=== PATIENT | female | born 1935 | race Caucasian/White ===

== ENCOUNTER 2024-03-28 09:25 | Outpatient (CLI) | payer MEDICARE, SELFPAY ==
--- NOTE | 2024-03-28 11:30 | NEURO_ITS ---
Impression: # Complains of numbness of feet. History of lower back surgery twice. # Sensory neuropathy. # Needle/EMG exam abnormal with decreased motor unit potentials but no acute neurogenic changes. # Clinical correlation recommended. Nerve Conduction Studies Anti Sensory Summary Table Stim Site NR Peak (ms) P-T Amp (?V) Site1 Site2 Delta-P (ms) Dist (cm) Alec (m/s) Left Sup Fibular Anti Sensory (Ant Lat Mall) 14 cm 4.6 11.4 14 cm Ant Lat Mall 4.6 16.0 35 Right Sup Fibular Anti Sensory (Ant Lat Mall) NO RESPONSE 14 cm NR 14 cm Ant Lat Mall 16.0 Left Sural Anti Sensory (Lat Mall) NO RESPONSE Calf NR Calf Lat Mall 16.0 Right Sural Anti Sensory (Lat Mall) NO RESPONSE Calf NR Calf Lat Mall 16.0 Motor Summary Table Stim Site NR Onset (ms) O-P Amp (mV) Site1 Site2 Delta-0 (ms) Dist (cm) Alec (m/s) Left Peroneal Motor (Vastus Med) Ankle 4.1 1.8 Popit Ankle 8.4 38.0 45 Popit 12.5 1.2 Right Peroneal Motor (Vastus Med) Ankle 4.0 1.2 Popit Ankle 8.7 40.0 46 Popit 12.7 1.0 Left Tibial Motor (Abd Gaming Brev) Ankle 4.5 0.5 Knee Ankle 9.0 39.0 43 Knee 13.5 1.0 Right Tibial Motor (Abd Gaming Brev) Ankle 4.4 0.6 Knee Ankle 9.4 40.0 43 Knee 13.8 1.4 F Wave Studies NR F-Lat (ms) L-R F-Lat (ms) Left Peroneal (Mrkrs) (EDB) 52.07 1.45 Right Peroneal (Mrkrs) (EDB) 50.63 1.45 Left Tibial (Mrkrs) (Abd Hallucis) 51.23 1.05 Right Tibial (Mrkrs) (Abd Hallucis) 50.18 1.05 EMG Side Muscle Nerve Root Ins Act Fibs Amp Dur Recrt Comment Right AntTibialis Dp Br Fibular L4-5 Nml Nml Nml Nml +1 Right Gastroc Tibial S1-2 Nml Nml Nml Nml +1 Right Fibularis Long Sup Br Fibular L5-S1 Nml Nml Nml Nml +1 Right Flex Dig Long Tibial L5-S2 Nml Nml Nml Nml +1 Right Ext Dig Brev Dp Br Fibular L5, S1 Nml Nml Nml Nml +1 Right QuadratusFem QuadFemoris L4-5, S1 Nml Nml Nml Nml +1 Left AntTibialis Dp Br Fibular L4-5 Nml Nml Nml Nml +1 Left Gastroc Tibial S1-2 Nml Nml Nml Nml +1 Left Fibularis Long Sup Br Fibular L5-S1 Nml Nml Nml Nml +1 Left Flex Dig Long Tibial L5-S2 Nml Nml Nml Nml +1 Left Ext Dig Brev Dp Br Fibular L5, S1 Nml Nml Nml Nml +1 Left QuadratusFem QuadFemoris L4-5, S1 Nml Nml Nml Nml +1 MTDD
== END 2024-03-28 09:26 | disposition home or self-care (01) ==
LOC: ANHNEURO 09:33
PROVIDERS: PCP Internal Medicine; Visit Provider Internal Medicine
DX: G62.9 Polyneuropathy, unspecified (principal); R94.131 Abnormal electromyogram [EMG]
CPT/HCPCS: 95886; 95910

== ENCOUNTER 2024-04-18 17:34 | Emergency (ER) | payer MEDICARE, SELFPAY ==
--- NOTE | ~2024-04-18 | CT_ITS ---
EXAMINATION: CT brain wo con DATE: 04/18/2024 18:48 INDICATION: fall . TECHNIQUE: Computed tomography (CT) of the head was performed without intravenous contrast. The mA wa s adjusted according to patient size. Iterative reconstruction technique was employed. The dose-lengt h product was 605.33 mGy-cm. COMPARISON: None. FINDINGS: No acute intracranial hemorrhage or extra-axial fluid collection. No hydrocephalus, mass, or herniation. No acute ischemic infarct. Unremarkable dural venous sinus attenuation. No acute osseous abnormality. Left frontal laceration/contusion The aerated spaces are clear. Mild atrophy and chronic white matter change. Atherosclerotic intracranial calcification. Bilateral l ens replacements. IMPRESSION: No acute intracranial process. Reviewed, dictated and finalized at location K.
--- NOTE | ~2024-04-18 | CT_ITS ---
EXAMINATION: CT facial & cervical spine wo DATE: 04/18/2024 18:49 INDICATION: fall TECHNIQUE: Computed tomography (CT) of the maxillofacial region and cervical spine was performed with out intravenous contrast. Automated exposure control and iterative reconstruction technique were empl oyed. The dose-length product was 205.55 mGy-cm. COMPARISON: None FINDINGS: CERVICAL: Vertebral Body Alignment: 2 mm anterolisthesis at C2-3 and C3-4, presumably on a degenerative basis. Focal kyphosis centered at C3-4 Craniocervical and atlantoaxial alignment: Moderate degenerative change. Alignment intact. Osseous structures/fracture: No evidence of a lytic or blastic process in the visualized spine. No e vidence of acute fracture. Cervical soft tissues: The paraspinal soft tissues planes are maintained. Degenerative changes: Multilevel moderate degenerative disc disease including large bridging anterior osteophytes. Multilevel moderate facet arthropathy. No severe central canal or neural foraminal narr owing. FACE: Soft Tissues: Left frontal laceration/contusion. Facial bones: No acute fracture. No lytic or blastic process. Eyes: The globes are intact. The soft tissue planes of the orbits are maintained. Bilateral lens re placements. Paranasal Sinuses: The visualized aerated spaces are clear. Foreign Bodies: No radiopaque foreign bodies. Other Findings: None. IMPRESSION: No acute fracture or traumatic malalignment in the cervical spine. No acute facial bone fracture. Reviewed, dictated and finalized at location K. IMPRESSION: No acute fracture or traumatic malalignment in the cervical spine. No acute fac ial bone fracture.
--- NOTE | ~2024-04-18 | XR_ITS ---
EXAM: XR knee LT min 4V DATE: 04/18/2024 18:36 HISTORY: fall HITTING HEAD AND LEFT KNEE . COMPARISON: None available. FINDINGS: Osteopenia. No fracture or dislocation. No lytic or blastic lesion. Tricompartmental left knee osteoarthritis, moderate in the medial compartment. No erosion or periosteal change. Soft tissue s within normal limits. IMPRESSION: No acute osseous finding in the left knee. Reviewed, dictated and finalized at location K.
[2024-04-18 17:38] VITALS: BP 150/88; PULSE 98; RESP 16; TEMP 36.6; O2SAT 97
--- NOTE | 2024-04-18 17:43 | ED.FALL ---
HPI - Fall General Chief Complaint: Fall <Felicia Beasley PA-C - Last Filed: 04/18/24 17:44> Stated Complaint: fall <Felicia Beasley PA-C - Last Filed: 04/18/24 17:44> Time Seen by Provider: 04/18/24 22:40 <Felicia Beasley PA-C - Last Filed: 04/18/24 17:44> Focused HPI: 88-year-old female presents with her daughter at bedside for a ground level fall that occurred prior to arrival. Patient states she was walking her neighbors arena cake which he tripped on a boat hitch. She fell and hit her head. She did not lose consciousness. She is not anticoagulated. She is reporting with an abrasion and bruise to her left eyebrow, abrasions to her nose, abrasions to her left knee with associated pain. Last Tdap unknown. Denies neck pain, back pain or other injuries acquired. GENERAL: Well-appearing, well-nourished, and in no acute distress. HEAD: Ecchymosis and abrasion to the left eyebrow, abrasions to the bridge of the nose. No epistaxis BACK: No midline cervical, thoracic or lumbar spinous tenderness. No step-offs or deformities CHEST: Clear to auscultation. ?No respiratory distress. EXT: Superficial abrasions to the anterior aspect of the left knee with associated tenderness to palpation. Full active and passive range of motion. HEART: Regular rate and rhythm.? NEURO: ?Alert and oriented x3. Patient screened in triage and initial orders placed.? ?Additional care and disposition to be based upon?diagnostic testing and treatment. <Felicia Beasley PA-C - Last Filed: 04/18/24 17:44> History of Present Illness HPI Narrative: This is an 88-year-old female with history of diabetic neuropathy who presents to the emergency department chief complaint of a ground level fall. Patient states she was walking to her neighbors when she tripped on a rock on the ground. She fell face 1st and landed hitting her head on the left side and bilateral knees. She has not lose consciousness and she was able to get up unassisted. She is able ambulate but wants to get evaluated she is having significant bruising in her head and knees. Pain is well controlled. Denies any nauseous, vomiting, dizziness, vision changes, chest pain, shortness a breath, back pain. Fall was purely mechanical nature according to the patient she has not had any prodromal symptoms. She was otherwise in her normal state of health. She does not have any history of seizure disorder any kind of blood thinner use. <Deep Erwin MD - Last Filed: 04/18/24 23:08> Related Data Home Medications: Home Medications Medication Instructions Recorded Confirmed alendronate 70 mg tablet mg PO 04/18/24 amitriptyline 50 mg tablet mg 04/18/24 atorvastatin 20 mg tablet mg 04/18/24 lisinopril 20 mg tablet mg 04/18/24 omeprazole 20 mg capsule,delayed mg 04/18/24 release propranolol 80 mg capsule,24 mg PO 04/18/24 hr,extended release triamcinolone acetonide 0.1 % applic topical 04/18/24 topical cream <Felicia Beasley PA-C - Last Filed: 04/18/24 17:44> Allergies/Adverse Reactions: Allergies Allergy/AdvReac Type Severity Reaction Status Date / Time codeine Allergy Unknown Hallucinati Unverified 04/18/24 23:01 ng morphine Allergy Unknown Hallucinati Unverified 04/18/24 23:01 ng <Felicia Beasley PA-C - Last Filed: 04/18/24 17:44> Review of Systems Review of Systems: As reviewed above in HPI <Deep Erwin MD - Last Filed: 04/18/24 23:08> Exam Narrative: GENERAL: [Well-appearing, well-nourished, and in no acute distress.] HEAD: Normocephalic, left-sided periorbital hematoma, soft, nontender to palpation. No zygomatic tenderness, no facial bone tenderness. No cervical spine pain or malalignment EYES: [PERRLA and EOMI.] ENT: Nares clear, no rhinorrhea or epistaxis. Mucous membranes moist. Nasal bridge with some bruising but no deformity. No basal bridge tenderness NECK: Supple. ELOISA
[2024-04-18] MEDS: TETANUS,DIPHTHERIA,AC PERTUSSIS ADULT (0.5 ML) BOOSTRIX IM (22:35)
[2024-04-18 22:43] VITALS: BP 149/77; PULSE 68; RESP 16; TEMP 36.4; O2SAT 96
[2024-04-18] MEDS: ACETAMINOPHEN 500 MG TABLET 1000 MG PO (23:05)
[2024-04-19 00:41] VITALS: BP 117/76; PULSE 86; RESP 16; TEMP 36.6; O2SAT 98
== END 2024-04-19 00:45 | disposition home or self-care (01) ==
PROVIDERS: Emergency Provider Student in an Organized Health Care Education/Training Program; PCP Internal Medicine
DX: S06.0X0A Concussion without loss of consciousness, initial encounter (principal); S00.12XA Contusion of left eyelid and periocular area, initial encounter; S80.01XA Contusion of right knee, initial encounter; S80.212A Abrasion, left knee, initial encounter; Z23 Encounter for immunization; E11.40 Type 2 diabetes mellitus with diabetic neuropathy, unspecified; Z79.899 Other long term (current) drug therapy; W18.09XA Striking against other object with subsequent fall, initial encounter
CPT/HCPCS: 70450; 70486; 72125; 73564; 90471; 90715; 99284; A9270

== ENCOUNTER 2024-12-09 11:34 | Emergency (ER) | payer OTHER, MEDICARE, SELFPAY ==
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
--- NOTE | 2024-12-09 11:37 | ECG_ITS ---
Test Date: 2024-12-09 11:42:46 Measurements Intervals [place] Rate: 67 P: 60 NC: 215 QRS: -52 QRSD: 126 T: 79 QT: 399 QTc: 423 Interpretive Statements SINUS RHYTHM WITH FIRST DEGREE AV BLOCK POSSIBLE LEFT ATRIAL ENLARGEMENT [-0.1mV P WAVE IN V1/V2] MARKED LEFT AXIS DEVIATION [QRS AXIS < -30] RIGHT BUNDLE BRANCH BLOCK [120+ ms QRS DURATION, UPRIGHT V1, 40+ ms S IN I/aVL/V4/V5/V6] POSSIBLE SEPTAL MYOCARDIAL INFARCTION , OF INDETERMINATE AGE [30 ms Q WAVE IN V1/V2] No previous ECG available for comparison Electronically Signed On 12-09-2024 11:44:55 CDT by Panfilo Benedict M.D.
[2024-12-09 12:00] VITALS: BP 149/96; PULSE 69; RESP 19; TEMP 36.2; O2SAT 96
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
--- NOTE | 2024-12-09 13:10 | PC.NURSE ---
Pt. to CT.
[2024-12-09 14:29] VITALS: BP 123/70; PULSE 77; RESP 15; O2SAT 96
--- OUTSIDE RECORDS SUMMARY | 2024-12-09 16:31 | XMS_ITS | Continuity of Care Document ---
Author Organization [facility] Address [address] [place] [address] Phone Care Team Providers Care Manager Filter Name Role Phone Veronica Palacios Unavailable Unavailable Procedures Procedure Date Office/outpatient Visit, Est Eye Exam & Treatment Refraction Eye Exam & Treatment Advance Directives Directive Yes / No Effective Date File Name No Information Encounters Encounter Description Practice Location Reason(s) For Visit Diagnoses Date Provider Providers Copied on Encounter Office/outpat ient Visit, Est [facility], [address] [place] [address] [address], [place], [place], [id number], [place] tel:[phone] SEC [facility] No Information 2-[address] , [address], [place], [place], [facility], [place]. tel:[phone] [facility], [address] [place] [address] [address], [place], [place], [id number], [place] tel:[phone] [facility] No Information 0-200 9 Suzanne Rasheed [address] , [address], [place], [address], [place]. tel:[phone] [facility], [address] [place] [address] [address], [place], [place], [id number], [place] tel:[phone] [facility] No Information 7-200 8 Suzanne Rasheed [address] , [address], [place], [address], [place]. tel:[phone] Family History Family Member Type Diagnosis Age At Onset No Information Payers Payer name Insurance type Covered green party ID Authoriza tion(s) Medicare RR MB [id number] Social History Type Description Quantity Date Captured Comments Sex Female Smoking Status No Information Chief Complaint And Reason For Visit No Information Reason For Referral Reason For Referral No Information History Of Present Illness Encounter Date Complaint History Of Prese nt Illness No Information Functional Status Date Functional Assessmen t No Information Instructions Date Instruction Additional Infor mation No Information Assessments Type Assessment Date No Information Patient Care Teams Name Effective Dates (start - stop) Status Members No Information
--- OUTSIDE RECORDS SUMMARY | 2024-12-09 16:31 | XMS_ITS | CONTINUITY OF CARE DOCUMENT ---
Author Name krysta chaparro Address Unknown Organization [facility] Address [address] [place] [address] Phone [phone] Care Team Providers Care Caser Name Role Phone Christopher Garcia MD Unavailable [phone] SCOTT BRICE MD Unavailable SCOTT BRICE MD Unavailable [phone] PROBLEMS Condition Status Date Provider Notes HYPERCHOLESTEROLEMIA active David Gilman RN CHEST PAIN-TYPE TO BE DETERMINED active David Gilman RN HTN ESSENTIAL active Kayla Burns ENCOUNTERS Date Type Provider Location Encounter Diag nosis - In-person encounter Office Visit Christopher Garcia MD Organ Office VITAL SIGNS Date Observation Value Provider blood pressure, diastolic, left arm 82 mm [Hg] Erickson Martinez blood pressure, systolic, left arm 145 mm [Hg] Erickson Martinez blood pressure, diastolic, right arm 87 m m[Hg] Erickson Martinez blood pressure, systolic, right arm 149 m m[Hg] Erickson Martinez pulse rate 72 /min Erickson Martinez oxygen saturation, oximetry 92 % Erickson Martinez respiratory rate E&M 18 /min Erickson nieto weight E&M 192 [lb_av] Erickson Martinez HISTORY OF MEDICATION USE Medication Status Instructions Dates Provider Indications Com ments LISINOPRIL 20 MG ORAL TABLET active ONE TAB. DAILY David Gilman RN INDERAL LA 80 MG ORAL CAPSULE EXTENDED RELEASE 24 HOUR active DAILY David Gilman RN PRILOSEC 20 MG ORAL CAPSULE DELAYED RELEASE active ONE TAB. DAILY David Gilman RN MEVACOR 40 MG ORAL TABLET active DAILY David Gilman RN ASPIRIN 81 MG ORAL TABLET active ONE TAB. DAILY David Mukul RN AMITRIPTYLINE HCL 50 MG ORAL TABLET active HS David Mukul WALKER SOCIAL HISTORY Date Observation Value Provider physical exercise, frequency, days per we ek yes [employer] caffeine use, average drinks per day no [employer] alcohol use, average drinks per day none [employer] smoking status Non-smoker [employer] MENTAL STATUS Date Observation Value Provider assessment of judgme nt and insight E&M Alert and oriented to time, place and person. Mood and affect are normal. Christopher Garcia MD INSURANCE PROVIDERS Payer name Policy type / Coverage type Elias red republican ID [employer] [id number] [employer] Medicare [id number] TREATMENT PLAN Date Name Performer signature: H er updated medication list for this problem includes: Aspirin 81 Mg Tabs (Aspirin) ..... One tab. daily Inderal La 80 Mg Cp24 (Propranolol hcl) ..... Daily Lisinopril 20 Mg Tabs (Lisinopril) ..... One tab. daily Christopher Garcia MD signature: H er updated medication list for this problem includes: Mevacor 40 Mg Tabs (Lovastatin) ..... Daily Christopher Garcia MD signature: H er updated medication list for this problem includes: Aspirin 81 Mg Tabs (Aspirin) ..... One tab. daily Inderal La 80 Mg Cp24 (Propranolol hcl) ..... Daily Lisinopril 20 Mg Tabs (Lisinopril) ..... One tab. daily N uclear Stress Findings: 1. Normal David protocol exercise tolerance test. 2 . Normal left ventricular size and function with a calculated ejection fraction of 52%%. 3 . Myocardial scintigraphy is normal without evidence for previous myocardial infarction or reversible ischemia. (12/21/2007) E cho: Conclusions: LV EF is estimated at 65%. T he left ventricular chamber size is normal. M inimal to (1+) mild mitral regurgitation. M inimal to (1+) mild aortic regurgitation. ( 1+) Mild tricuspid regurgitation. N o evidence of pulmonic valve regurgitation. (12/21/2007) p ain is not cardiac. it is seondary to esophageal spasm. Christopher Garcia MD
--- OUTSIDE RECORDS SUMMARY | 2024-12-09 16:31 | XMS_ITS | Data Portability ---
Author Organization [place] - [facility] [employer], Main Office Address [address] [place] [address] Assessment No assessment recorded. Plan of Treatment Reminders Order Date Submit Date Provider Last Modified By Organization Details Last Modified Time Details Appointments None recorded. Lab CBC w/ auto diff 025 [facility], [address] [place], [address], 5 11:47:59 vitamin D, 25-hydrox y, total, serum [facility], [place], [facility] Lab, [address] [place], [address], 4 14:35:26 magnesium , serum or plasma [facility], [address] [place], [address], 4 12:26:48 vitamin B12, serum 024 [facility], [address] [place], [address], 4 13:11:46 lipid panel, serum [facility], [address] [place], [address], 4 12:26:44 CMP, serum or plasma [facility], [address] [place], [address], 4 12:26:46 TSH, serum or plasma [facility], [address] [place] [address], [address], 4 12:53:03 T4, free, serum [facility], [address] [place] [address], [address], 4 12:38:29 CBC w/ auto diff [facility] Lab, [address] [place] [address], [address], 4 12:06:32 vitamin D, 25-hydrox y, total, serum [email or web address] [place] [address] Outpatient Lab, [address] [place] [address], [address], 4 11:48:44 magnesium , serum or plasma [facility] Lab, [address] [place] [address], [address], 4 13:10:20 vitamin B12, serum [facility], [address] [place] [address], [address], 4 14:02:39 lipid panel, serum 024 [facility], [address] [place], [address], 4 13:10:11 CMP, serum or plasma [facility], [address] [place] [address], [address], 4 13:10:17 TSH, serum or plasma 024 [facility], [address] [place], [address], 4 13:42:00 T4, free, serum 024 [facility], [address] [place], [address], 4 13:28:28 CBC w/ auto diff 024 [facility], [address] [place], [address], 4 13:00:05 lipase, serum or plasma 024 [facility], [address] [place], [address], 4 07:18:05 amylase, serum or plasma 024 [facility], [address] [place], [address], 4 07:18:04 CMP, serum or plasma 024 [facility], [address] [place], [address], 4 07:17:59 CBC w/ auto diff 024 [facility], [address] [place], [address], 4 07:18:00 lipid panel, serum 024 [facility], [address] [place], [address], 4 07:17:58 T4, free, serum 024 024 [facility] - Outpatient Lab, [address] [place], [address], 4 07:18:02 TSH, serum or plasma 024 024 [facility] - Outpatient Lab, [address] [place], [address], 4 07:18:03 Referral None recorded. Procedures None recorded. Surgeries None recorded. Imaging None recorded. Medication Orders None recorded. Patient TargetsNo targets recorded. Patient Instructions Encounter Date Encounter Id Patient Instructions Last Modified By Organization Details Last Modified Time 08/20/2023 [id number] Abdominal pain etiology which obscure. Needs a CBC, CMP,Lipid, Thyroid Pending those results may need to consider doing CT scan of the abdomen for further evaluation. Portions of the record may have been created with voice recognition software. Occasional wrong-word or s ound-a-like substitutions may have occurred due to the inherent limitations of voice recognition software. Read the chart carefully and recognize, using context, where substitutions have occurred. [email or web address] Not available 08/20/2023 11:53:27 12/20/2023 [id number] Lower back strai n. Plan obtain radiographic studies of the thoracic and lumbar spine. Already has some tramadol which he is only taking half tablet time. Could add some muscle relaxant but concerned the patient's age this could make her drowsy and apparently she took a muscle relaxant from her daughter and did do much good. Continue on current Rx obtain radiographic studies. Continue with the tramadol and instructed she can also take some Tylenol along with this. Already has a follow-up appointment X-ray thoracic spine for thoracic back pain from trauma X-ray of lumbosacral spine post traumatic Keep Appointment: Wed 10:20 AM [place] Portions of the record may have been created with voice recognition software. Occasional wrong-word or s ound-a-like substitutions may have occurred due to the inherent limitations of voice recognition software. Read the chart carefully and recognize, using context, where substitutions have occurred. [email or web address] Not available 12/20/2023 11:40:48 02/17/2024 [id number] Follow-up hypertension, hyperlipidemia, GERD as well as polyneuropathy. Plan to check blood work consisting of CBC, CMP, lipid, thyroid, B12 and magnesium level. Will also check vitamin-D concentrations. Check a nerve conduction study and follow-up in four months Additional Orders and/or Directives: 1. nerve conduction study lower extremities neuropathy Next Appointment: 4 Months Approximate Date: 06/16/2024 Portions of the record may have been created with voice recognition software. Occasional wrong-word or s ound-a-like substitutions may have occurred due to the inherent limitations of voice recognition software. Read the chart carefully and recognize, using context, where substitutions have occurred. [email or web address] Not available 02/17/2024 11:44:44 06/22/2024 [id number] Follow-up essent ial hypertension, hyperlipidemia, GERD as well as osteoporosis. All clinically stable. Check blood work consisting of CBC, CMP, lipid, thyroid, B12, Magnesium and vitamin-D level. Continue on current Rx and follow-up in six months Follow Up: 6 Months Approximate Date: 12/19/2024 [email or web address] Not available 06/22/2024 12:00:50 09/19/2024 [id number] Contusion left h ip, hypertension, hyperlipidemia, GERD and neuropathy of the lower extremities. Plan at this time is to continue on current Rx. Will need a walker as well as a disability placard. Will check a CBC due to the significant size of the hematoma of the left hip. Follow-up at her regular scheduled appointment. Additional Orders - Directives - Recommendations 1. CBC 2. Handicap parking placard 3.. standard walker documented in the [facility] Keep Appointment: [facility] 12 21 2024 10:30 AM [place] Portions of record are template driven. When necessary additional context will be provided. Additionally some portions have been created with voice recognition software. Occasional wrong-word or s ound-a-like substitutions may have occurred due to the inherent limitations of voice recognition software. Read the chart carefully and recognize, using context, where substitutions may have occurred. Created: Freddy Sullivan M.D. 09.19.2024 09:41 AM [email or web address] Not available 09/19/2024 10:41:40 Reason for Referral None Reported. Results Created Date Observation Date Name Description Value Unit Range Abnormal Flag Note LastModifiedBy Organization Detail LastModifiedTime 08/24/19 24 08/25/2023 LIPID PANEL , STAND GIANLUCA cholesterol, total 133 mg/dL <200 normal Not Available [address], [address], 08/25/2023 07:17:58 08/24/19 24 08/25/2023 LIPID PANEL , STAND GIANLUCA HDL cholesterol 53 mg/dL > or = 50 normal Not Available [address], [address], 08/25/2023 07:17:58 08/24/19 24 08/25/2023 LIPID PANEL , STAND GIANLUCA triglyceride s 122 mg/dL <150 normal Not Available [address], [address], 08/25/2023 07:17:58 08/24/19 24 08/25/2023 LIPID PANEL , STAND GIANLUCA LDL-choleste rol 60 mg/dL _(clifton c) normal Refer ence range : <100 Alonzo able range <100 mg/dL for prima ry preve ntion ; <70 mg/dL for patie nts with CHD or diabe tic patie nts with > or = 2 CHD risk facto rs. LDL-C is now calcu lated using the Eloise n-Hop kins calcu drew n, which is a valid ated novel erlinda gillette r accur acy than the Fried gregorio equat ion in the estim ation of LDL-C . Eloise rowe SS et al. KATHYA. 2013; 310(1 9): 2061- 2068 (http ://ed ucati on.Qu janiDi [employer]. com/f aq/FA Q164) Not Available [address], [address], 08/25/2023 07:17:58 08/24/19 24 08/25/2023 LIPID PANEL , STAND GIANLUCA chol/HDLC ratio 2.5 (calc ) <5.0 normal Not Available [address] [place], [address], 08/25/2023 07:17:58 08/24/19 24 08/25/2023 LIPID PANEL , STAND GIANLUCA non HDL cholesterol 80 mg/dL _(clifton c) <130 normal For patie nts with diabe josh plus 1 major ASCVD risk facto r, treat ing to a non-H DL-C goal of <100 mg/dL (LDL- C of <70 mg/dL ) is consi dered a thera peuti c optio n. Not Available [address], [address], 08/25/2023 07:17:58 08/24/19 24 08/25/2023 COMPR EHENS LELAND METAB OLIC PANEL glucose 131 mg/dL 65-99 high Fasti ng refer ence inter andre For someo ne witho ut known diabe josh, a gluco se value >125 mg/dL indic ates that they may have diabe josh and this shoul d be confi rmed with a follo w-up test. Not Available [address], [address], 08/25/2023 07:17:59 08/24/19 24 08/25/2023 COMPR EHENS LELAND METAB OLIC PANEL urea nitrogen (BUN) 17 mg/dL 7-25 normal Not Available [address], [address], 08/25/2023 07:17:59 08/24/19 24 08/25/2023 COMPR EHENS LELAND METAB OLIC PANEL creatinine 0.77 mg/dL 0.60-0 .95 normal Not Available [address], [address], 08/25/2023 07:17:59 08/24/19 24 08/25/2023 COMPR EHENS LELAND METAB OLIC PANEL eGFR 76 mL/mi n/1.7 3m2 > or = 60 normal Not Available [address] [place], [address], 08/25/2023 07:17:59 08/24/19 24 08/25/2023 COMPR EHENS LELAND METAB OLIC PANEL BUN/creatini ne ratio SEE NOTE: (calc ) 6-22 Not Repor eren: BUN and Creat inine are withi n refer ence range . Not Available [address], [address], 08/25/2023 07:17:59 08/24/19 24 08/25/2023 COMPR EHENS LELAND METAB OLIC PANEL sodium 143 mmol/ L 135-14 6 normal Not Available [address], [address], 08/25/2023 07:17:59 08/24/19 24 08/25/2023 COMPR EHENS LELAND METAB OLIC PANEL potassium 4.5 mmol/ L 3.5-5. 3 normal Not Available [address], [place], [address], 08/25/2023 07:17:59 08/24/19 24 08/25/2023 COMPR EHENS LELAND METAB OLIC PANEL chloride 106 mmol/ L 98-110 normal Not Available [address], [address], 08/25/2023 07:17:59 08/24/19 24 08/25/2023 COMPR EHENS LELAND METAB OLIC PANEL carbon dioxide 31 mmol/ L 20-32 normal Not Available [facility] [address] [place], [address], 08/25/2023 07:17:59 08/24/19 24 08/25/2023 COMPR EHENS LELAND METAB OLIC PANEL calcium 9.1 mg/dL 8.6-10 .4 normal Not Available [address], [address], 08/25/2023 07:17:59 08/24/19 24 08/25/2023 COMPR EHENS LELAND METAB OLIC PANEL protein, total 6.2 g/dL 6.1-8. 1 normal Not Available [address], [address], 08/25/2023 07:17:59 08/24/19 24 08/25/2023 COMPR EHENS LELAND METAB OLIC PANEL albumin 3.7 g/dL 3.6-5. 1 normal Not Available [address], [address], 08/25/2023 07:17:59 08/24/19 24 08/25/2023 COMPR EHENS LELAND METAB OLIC PANEL globulin 2.5 g/dL_ (calc ) 1.9-3. 7 normal Not Available [address], [address], 08/25/2023 07:17:59 08/24/19 24 08/25/2023 COMPR EHENS LELAND METAB OLIC PANEL albumin/glob ulin ratio 1.5 (calc ) 1.0-2. 5 normal Not Available [address], [address], 08/25/2023 07:17:59 08/24/19 24 08/25/2023 COMPR EHENS LELAND METAB OLIC PANEL bilirubin, total 0.5 mg/dL 0.2-1. 2 normal Not Available [address], [address], 08/25/2023 07:17:59 08/24/19 24 08/25/2023 COMPR EHENS LELAND METAB OLIC PANEL alkaline phosphatase 69 U/L 37-153 normal Not Available [address], [address], 08/25/2023 07:17:59 08/24/19 24 08/25/2023 COMPR EHENS LELAND METAB OLIC PANEL AST 18 U/L 10-35 normal Not Available [address], [address], 08/25/2023 07:17:59 08/24/19 24 08/25/2023 SOPHIA PAN LELAND METAB OLIC PANEL ALT 8 U/L 6-29 normal Not Available [address], [address], 08/25/2023 07:17:59 08/24/19 24 08/25/2023 CBC (INCL UDES DIFF/ PLT) white blood cell count 6.6 thous and/u L 3.8-10 .8 normal Not Available [address], [address], 08/25/2023 07:18:00 08/24/19 24 08/25/2023 CBC (INCL UDES DIFF/ PLT) red blood cell count 4.74 janna on/uL 3.80-5 .10 normal Not Available [address], [address], 08/25/2023 07:18:00 08/24/19 24 08/25/2023 CBC (INCL UDES DIFF/ PLT) hemoglobin 14.9 g/dL 11.7-1 5.5 normal Not Available [address], [address], 08/25/2023 07:18:00 08/24/19 24 08/25/2023 CBC (INCL UDES DIFF/ PLT) hematocrit 43.6 % 35.0-4 5.0 normal Not Available [address], [address], 08/25/2023 07:18:00 08/24/19 24 08/25/2023 CBC (INCL UDES DIFF/ PLT) MCV 92.0 fL 80.0-1 00.0 normal Not Available [address], [address], 08/25/2023 07:18:00 08/24/19 24 08/25/2023 CBC (INCL UDES DIFF/ PLT) MCH 31.4 pg 27.0-3 3.0 normal Not Available [address], [address], 08/25/2023 07:18:00 08/24/19 24 08/25/2023 CBC (INCL UDES DIFF/ PLT) MCHC 34.2 g/dL 32.0-3 6.0 normal Not Available [address], [address], 08/25/2023 07:18:00 08/24/19 24 08/25/2023 CBC (INCL UDES DIFF/ PLT) RDW 12.7 % 11.0-1 5.0 normal Not Available [address], [address], 08/25/2023 07:18:00 08/24/19 24 08/25/2023 CBC (INCL UDES DIFF/ PLT) platelet count 217 thous and/u L 140-40 0 normal Not Available [address], [address], 08/25/2023 07:18:00 08/24/19 24 08/25/2023 CBC (INCL UDES DIFF/ PLT) MPV 13.3 fL 7.5-12 .5 high Not Available [address], [address], 08/25/2023 07:18:00 08/24/19 24 08/25/2023 CBC (INCL UDES DIFF/ PLT) absolute neutrophils 3947 cells /uL 1500-7 800 normal Not Available [address], [address], 08/25/2023 07:18:00 08/24/19 24 08/25/2023 CBC (INCL UDES DIFF/ PLT) absolute lymphocytes 1822 cells /uL 850-39 00 normal Not Available [address], [address], 08/25/2023 07:18:00 08/24/19 24 08/25/2023 CBC (INCL UDES DIFF/ PLT) absolute monocytes 482 cells /uL 200-95 0 normal Not Available [facility] [address], [address], 08/25/2023 07:18:00 08/24/19 24 08/25/2023 CBC (INCL UDES DIFF/ PLT) absolute eosinophils 290 cells /uL 15-500 normal Not Available [address], [address], 08/25/2023 07:18:00 08/24/19 24 08/25/2023 CBC (INCL UDES DIFF/ PLT) absolute basophils 59 cells /uL 0-200 normal Not Available [address], [address], 08/25/2023 07:18:00 08/24/19 24 08/25/2023 CBC (INCL UDES DIFF/ PLT) neutrophils 59.8 % normal Not Available [address], [address], 08/25/2023 07:18:00 08/24/19 24 08/25/2023 CBC (INCL UDES DIFF/ PLT) lymphocytes 27.6 % normal Not Available [facility] [address], [address], 08/25/2023 07:18:00 08/24/19 24 08/25/2023 CBC (INCL UDES DIFF/ PLT) monocytes 7.3 % normal Not Available [facility] [address], [address], 08/25/2023 07:18:00 08/24/19 24 08/25/2023 CBC (INCL UDES DIFF/ PLT) eosinophils 4.4 % normal Not Available [address], [address], 08/25/2023 07:18:00 08/24/19 24 08/25/2023 CBC (INCL UDES DIFF/ PLT) basophils 0.9 % normal Not Available [address], [address], 08/25/2023 07:18:00 08/24/19 24 08/25/2023 T4, FREE T4, free 1.1 NG/dL 0.8-1. 8 normal Not Available [address], [address], 08/25/2023 07:18:02 08/24/19 24 08/25/2023 TSH TSH 2.89 mIU/L 0.40-4 .50 normal Not Available [address], [address], 08/25/2023 07:18:03 08/24/19 24 08/25/2023 AMYLA SE amylase 33 U/L 21-101 normal Not Available [address], [address], 08/25/2023 07:18:04 08/24/19 24 08/25/2023 LIPAS E lipase 17 U/L 7-60 normal Not Available [address], [address], 08/25/2023 07:18:05 02/17/20 24 02/17/2024 CBC/C OMPLE TE BLD COUNT W/DIF F white blood cells 6.3 x10'3 /uL 4.2-10 .8 Not Available [facility] (Lab) [address] [place], [address], 02/17/2024 13:00:05 02/17/20 24 02/17/2024 CBC/C OMPLE TE BLD COUNT W/DIF F red blood cells 4.73 x10'6 /uL 3.80-5 .20 Not Available [facility] (Lab) [address] [place], [address], 02/17/2024 13:00:05 02/17/20 24 02/17/2024 CBC/C OMPLE TE BLD COUNT W/DIF F hemoglobin 15.0 g/dL 12.0-1 5.6 Not Available [facility] (Lab) [address] [place], [address], 02/17/2024 13:00:05 02/17/20 24 02/17/2024 CBC/C OMPLE TE BLD COUNT W/DIF F hematocrit 44.0 % 35.7-4 5.7 Not Available [facility] (Lab) [address] [place], [address], 02/17/2024 13:00:05 02/17/20 24 02/17/2024 CBC/C OMPLE TE BLD COUNT W/DIF F mean red cell volume 93.0 fL 82.0-9 9.0 Not Available [facility] (Lab) [address] [place], [address], 02/17/2024 13:00:05 02/17/20 24 02/17/2024 CBC/C OMPLE TE BLD COUNT W/DIF F mean red cell hemoglobin 31.7 pg 27.0-3 3.0 Not Available [facility] (Lab) [address] [place], [address], 02/17/2024 13:00:05 02/17/20 24 02/17/2024 CBC/C OMPLE TE BLD COUNT W/DIF F mean RBC HGB concentratio n 34.1 g/dL 31.0-3 6.0 Not Available [facility] (Lab) [address] [place], [address], 02/17/2024 13:00:05 02/17/20 24 02/17/2024 CBC/C OMPLE TE BLD COUNT W/DIF F red cell distribution width 12.9 % 11.8-1 5.5 Not Available [facility] (Lab) [address] [place], [address], 02/17/2024 13:00:05 02/17/20 24 02/17/2024 CBC/C OMPLE TE BLD COUNT W/DIF F platelets 203 x10'3 /uL 150-40 0 Not Available [facility] (Lab) [address] [place], [address], 02/17/2024 13:00:05 02/17/20 24 02/17/2024 CBC/C OMPLE TE BLD COUNT W/DIF F mean platelet volume 11.5 fL 9.0-12 .4 Not Available [facility] (Lab) [address] [place], [address], 02/17/2024 13:00:05 02/17/20 24 02/17/2024 CBC/C OMPLE TE BLD COUNT W/DIF F neutrophils 56.3 % 39.0-7 2.0 Not Available [facility] (Lab) [address] [place], [address], 02/17/2024 13:00:05 02/17/20 24 02/17/2024 CBC/C OMPLE TE BLD COUNT W/DIF F lymphocytes 31.2 % 16.0-4 7.0 Not Available [facility] (Lab) [address] [place], [address], 02/17/2024 13:00:05 02/17/20 24 02/17/2024 CBC/C OMPLE TE BLD COUNT W/DIF F monocytes 7.9 % 5.0-12 .0 Not Available [facility] (Lab) [address] [place], [address], 02/17/2024 13:00:05 02/17/20 24 02/17/2024 CBC/C OMPLE TE BLD COUNT W/DIF F eosinophils 3.2 % 1.0-7. 0 Not Available [facility] (Lab) [address] [place], [address], 02/17/2024 13:00:05 02/17/20 24 02/17/2024 CBC/C OMPLE TE BLD COUNT W/DIF F basophils 1.1 % 0.0-2. 0 Not Available [facility] (Lab) [address] [place], [address], 02/17/2024 13:00:05 02/17/20 24 02/17/2024 CBC/C OMPLE TE BLD COUNT W/DIF F immature granulocytes 0.3 % 0.00-0 .50 Not Available [facility] (Lab) [address] [place], [address], 02/17/2024 13:00:05 02/17/20 24 02/17/2024 CBC/C OMPLE TE BLD COUNT W/DIF F neutrophils, absolute count 3.56 x10'3 /uL 1.5-8. 0 Not Available [facility] (Lab) [address] [place], [address], 02/17/2024 13:00:05 02/17/20 24 02/17/2024 CBC/C OMPLE TE BLD COUNT W/DIF F lymphocytes, absolute count 1.97 x10'3 /uL 1.07-3 .43 Not Available [facility] (Lab) [address] [place], [address], 02/17/2024 13:00:05 02/17/20 24 02/17/2024 CBC/C OMPLE TE BLD COUNT W/DIF F monocytes, absolute count 0.50 x10'3 /uL 0.29-0 .99 Not Available [facility] (Lab) [address] [place], [address], 02/17/2024 13:00:05 02/17/20 24 02/17/2024 CBC/C OMPLE TE BLD COUNT W/DIF F eosinophils, absolute count 0.20 x10'3 /uL 0.02-0 .53 Not Available [facility] (Lab) [address] [place], [address], 02/17/2024 13:00:05 02/17/20 24 02/17/2024 CBC/C OMPLE TE BLD COUNT W/DIF F basophils, absolute count 0.07 x10'3 /uL 0.01-0 .08 Not Available [facility] (Lab) [address] [place], [address], 02/17/2024 13:00:05 02/17/20 24 02/17/2024 CBC/C OMPLE TE BLD COUNT W/DIF F immature granulocytes ,absolute 0.02 x10'3 /uL 0.00-0 .05 Not Available [facility] (Lab) [address] [place], [address], 02/17/2024 13:00:05 02/17/20 24 02/17/2024 CBC/C OMPLE TE BLD COUNT W/DIF F nucleated red blood cells 0.0 % -0 Not Available [facility] (Lab) [address] [place], [address], 02/17/2024 13:00:05 02/17/20 24 02/17/2024 CBC/C OMPLE TE BLD COUNT W/DIF F NRBC# 0.00 x10'3 /uL Not Available [facility] (Lab) [address] [place], [address], 02/17/2024 13:00:05 02/17/20 24 02/17/2024 LIPID PANEL cholesterol 130 mg/dL 140-19 9 low NIH ZACK NSUS RECOM MENDA TION FOR DEBBY STERO L: ADULT CHILD LOW RISK: <200 <170 BORDE RLINE : <200- 239 ----- HIGH RISK: >240 >200 Not Available [facility] (Lab) [address] [place], [address], 02/17/2024 13:10:11 02/17/20 24 02/17/2024 LIPID PANEL triglyceride s 111 mg/dL 0-150 NIH ZACK NSUS REPOR T RECOM MENDA TION FOR TRIGL YCERI REECE: ADULT CHILD LOW RISK: <150 ----- BODER LINE: 150-1 99 ----- HIGH RISK: >200 ----- Not Available [facility] (Lab) [address] [place], [address], 02/17/2024 13:10:11 02/17/20 24 02/17/2024 LIPID PANEL HDL cholesterol 64 mg/dL 40- Not Available [facility] (Lab) [address] [place], [address], 02/17/2024 13:10:11 02/17/20 24 02/17/2024 LIPID PANEL LDL cholesterol, calculated 44 mg/dL 0-130 NIH ZACK NSUS REPOR T RECOM MENDA TIONS FOR LDL: ADULT CHILD LOW RISK <130 <110 (OPTI MAL LDL) <100 ----- BORDE RLINE : 130-1 59 ----- HIGH RISK: >160 >130 A TRIGL YCERI DE RESUL T >400 INVAL IDATE S THE CALCU LATIO N FOR LDL FRACT IONAT ION - THE LDL RESUL T WILL NOT BE REPOR EREN. Not Available [facility] (Lab) [address] [place], [address], 02/17/2024 13:10:11 02/17/20 24 02/17/2024 COMPR EHENS LELAND METAB OLIC PANEL sodium 138 mmol/ L 137-14 5 Not Available [facility] (Lab) [address] [place], [address], 02/17/2024 13:10:17 02/17/20 24 02/17/2024 COMPR EHENS LELAND METAB OLIC PANEL potassium 4.7 mmol/ L 3.5-5. 1 Not Available [facility] (Lab) [address] [place], [address], 02/17/2024 13:10:17 02/17/20 24 02/17/2024 COMPR EHENS LELAND METAB OLIC PANEL chloride 106 mmol/ L 98-107 Not Available [facility] (Lab) [address] [place], [address], 02/17/2024 13:10:17 02/17/20 24 02/17/2024 COMPR EHENS LELAND METAB OLIC PANEL carbon dioxide 30 mmol/ L 22-30 Not Available [facility] (Lab) [address] [place], [address], 02/17/2024 13:10:17 02/17/20 24 02/17/2024 COMPR EHENS LELAND METAB OLIC PANEL anion gap 6.7 mmol/ L 14-22 low Not Available [facility] (Lab) [address] [place], [address], 02/17/2024 13:10:17 02/17/20 24 02/17/2024 COMPR EHENS LELAND METAB OLIC PANEL glucose 112 mg/dL 70-99 high Not Available [facility] (Lab) [address] [place], [address], 02/17/2024 13:10:17 02/17/20 24 02/17/2024 COMPR EHENS LELAND METAB OLIC PANEL BUN 14 mg/dL 8-19 Not Available [facility] (Lab) [address] [place], [address], 02/17/2024 13:10:17 02/17/20 24 02/17/2024 COMPR EHENS LELAND METAB OLIC PANEL creatinine 0.69 mg/dL 0.66-1 .25 Not Available [facility] (Lab) [address] [place], [address], 02/17/2024 13:10:17 02/17/20 24 02/17/2024 COMPR EHENS LELAND METAB OLIC PANEL GFR >60 Refer ence Range : [place] [facility] GFR Healt hy Adult : >60 mL/mi n/1.7 3 m2 Chron ic Kidne y Disea se: 15-60 mL/mi n/1.7 3 m2 Kidne y Failu re: <15/m L/min /1.73 m2 www.n iddk. nih.g ov The MDRD study equat ion has not been valid ated in child jamari <18 years of age; pregn ant women ; the elder ly >85 years of age; or in some racia l or ethni c subgr oups, such as Hisut nics. Outsi de the valid ated piedad eters , estim ated GFR is less accur ate, requi ring clini clifton judgm ent on a case- by-ca se basis . Clini clifton inter preta tion for other races and ages must be made by the clini segundo. The MDRD study equat ion has not been valid ated for the evalu ation of serum creat inine relat ed to nutri fransico l statu s or medic ation usage . For perso ns <18 years of age, a pedia tric GFR calcu lator is avail able on the [facility] websi te: [email or web address] :[email or web address] [email or web address] r_[email or web address] culat or Not Available [facility] (Lab) [address] [place], [address], 02/17/2024 13:10:17 02/17/20 24 02/17/2024 COMPR EHENS LELAND METAB OLIC PANEL alkaline phosphatase 76 U/L 38-126 Not Available [facility] (Lab) [address] [place], [address], 02/17/2024 13:10:17 02/17/20 24 02/17/2024 COMPR EHENS LELAND METAB OLIC PANEL alanine aminotransfe rase 10 U/L 0-35 Not Available [facility] [facility] (Lab) [address] [place], [address], 02/17/2024 13:10:17 02/17/20 24 02/17/2024 COMPR EHENS LELAND METAB OLIC PANEL aspartate aminotransfe rase 25 U/L 15-37 Not Available [facility] (Lab) [address] [place], [address], 02/17/2024 13:10:17 02/17/20 24 02/17/2024 COMPR EHENS LELAND METAB OLIC PANEL bilirubin, total 0.80 mg/dL 0.20-1 .30 Not Available [facility] (Lab) [address] [place], [address], 02/17/2024 13:10:17 02/17/20 24 02/17/2024 COMPR EHENS LELAND METAB OLIC PANEL calcium 9.1 mg/dL 8.4-10 .2 Not Available [facility] (Lab) [address] [place], [address], 02/17/2024 13:10:17 02/17/20 24 02/17/2024 COMPR EHENS LELAND METAB OLIC PANEL total protein 6.7 g/dL 6.3-8. 2 Not Available [facility] (Lab) [address] [place], [address], 02/17/2024 13:10:17 02/17/20 24 02/17/2024 COMPR EHENS LELAND METAB OLIC PANEL albumin 4.0 g/dL 3.0-4. 4 Not Available [facility] (Lab) [address] [place], [address], 02/17/2024 13:10:17 02/17/20 24 02/17/2024 COMPR EHENS LELAND METAB OLIC PANEL globulin 2.7 g/dL 2.6-4. 2 Not Available [facility] (Lab) [address] [place], [address], 02/17/2024 13:10:17 02/17/20 24 02/17/2024 COMPR EHENS LELAND METAB OLIC PANEL A/G ratio 1.5 ratio 1.0-2. 0 Not Available [facility] (Lab) [address] [place], [address], 02/17/2024 13:10:17 02/17/20 24 02/17/2024 MAGNE SIUM magnesium 2.3 mg/dL 1.6-2. 3 Not Available [facility] (Lab) [address] [place], [address], 02/17/2024 13:10:20 02/17/20 24 02/17/2024 T4 FREE free T4 1.14 NG/dL 0.78-2 .19 Not Available [facility] (Lab) [address] [place], [address], 02/17/2024 13:28:28 02/17/20 24 02/17/2024 TSH thyroid-stim ulating hormone 2.080 uIU/m L 0.465- 4.680 Not Available [facility] (Lab) [address] [place], [address], 02/17/2024 13:42:00 02/17/20 24 02/17/2024 VITAM IN D 25-HY DROXY [id number] 42.0 NG/mL 30-100 Vitam in D Statu s: Defic ient: <20 ng/mL Insuf ficie nt: 20-29 ng/mL Suffi cient : 30-10 0 ng/mL Not Available [facility] (Lab) [address] [place], [address], 02/17/2024 13:44:48 02/17/20 24 02/17/2024 VITAM IN B12 (YAZMIN DESMOND ) vb12 647 pg/mL 239-93 1 Not Available [facility] (Lab) [address] [place], [address], 02/17/2024 14:02:39 06/26/20 24 06/26/2024 CBC/C OMPLE TE BLD COUNT W/DIF F white blood cells 7.0 x10'3 /uL 4.2-10 .8 Not Available [facility] (Lab) [address] [place], [address], 06/26/2024 12:06:32 06/26/20 24 06/26/2024 CBC/C OMPLE TE BLD COUNT W/DIF F red blood cells 4.69 x10'6 /uL 3.80-5 .20 Not Available [facility] (Lab) [address] [place], [address], 06/26/2024 12:06:32 06/26/20 24 06/26/2024 CBC/C OMPLE TE BLD COUNT W/DIF F hemoglobin 14.9 g/dL 12.0-1 5.6 Not Available [facility] (Lab) [address] [place], [address], 06/26/2024 12:06:32 06/26/20 24 06/26/2024 CBC/C OMPLE TE BLD COUNT W/DIF F hematocrit 44.2 % 35.7-4 5.7 Not Available [facility] (Lab) [address] [place], [address], 06/26/2024 12:06:32 06/26/20 24 06/26/2024 CBC/C OMPLE TE BLD COUNT W/DIF F mean red cell volume 94.2 fL 82.0-9 9.0 Not Available [facility] (Lab) [address] [place], [address], 06/26/2024 12:06:32 06/26/20 24 06/26/2024 CBC/C OMPLE TE BLD COUNT W/DIF F mean red cell hemoglobin 31.8 pg 27.0-3 3.0 Not Available [facility] (Lab) [address] [place], [address], 06/26/2024 12:06:32 06/26/20 24 06/26/2024 CBC/C OMPLE TE BLD COUNT W/DIF F mean RBC HGB concentratio n 33.7 g/dL 31.0-3 6.0 Not Available [facility] (Lab) [address] [place], [address], 06/26/2024 12:06:32 06/26/20 24 06/26/2024 CBC/C OMPLE TE BLD COUNT W/DIF F red cell distribution width 12.6 % 11.8-1 5.5 Not Available [facility] (Lab) [address] [place], [address], 06/26/2024 12:06:32 06/26/20 24 06/26/2024 CBC/C OMPLE TE BLD COUNT W/DIF F platelets 230 x10'3 /uL 150-40 0 Not Available [facility] (Lab) [address] [place], [address], 06/26/2024 12:06:32 06/26/20 24 06/26/2024 CBC/C OMPLE TE BLD COUNT W/DIF F mean platelet volume 11.9 fL 9.0-12 .4 Not Available [facility] (Lab) [address] [place], [address], 06/26/2024 12:06:32 06/26/20 24 06/26/2024 CBC/C OMPLE TE BLD COUNT W/DIF F neutrophils 53.6 % 39.0-7 2.0 Not Available [facility] (Lab) [address] [place], [address], 06/26/2024 12:06:32 06/26/20 24 06/26/2024 CBC/C OMPLE TE BLD COUNT W/DIF F lymphocytes 31.4 % 16.0-4 7.0 Not Available [facility] (Lab) [address] [place], [address], 06/26/2024 12:06:32 06/26/20 24 06/26/2024 CBC/C OMPLE TE BLD COUNT W/DIF F monocytes 8.5 % 5.0-12 .0 Not Available [facility] (Lab) [address] [place], [address], 06/26/2024 12:06:32 06/26/20 24 06/26/2024 CBC/C OMPLE TE BLD COUNT W/DIF F eosinophils 5.2 % 1.0-7. 0 Not Available [facility] (Lab) [address] [place], [address], 06/26/2024 12:06:32 06/26/20 24 06/26/2024 CBC/C OMPLE TE BLD COUNT W/DIF F basophils 0.9 % 0.0-2. 0 Not Available [facility] (Lab) [address] [place], [address], 06/26/2024 12:06:32 06/26/20 24 06/26/2024 CBC/C OMPLE TE BLD COUNT W/DIF F immature granulocytes 0.4 % 0.00-0 .50 Not Available [facility] (Lab) [address] [place], [address], 06/26/2024 12:06:32 06/26/20 24 06/26/2024 CBC/C OMPLE TE BLD COUNT W/DIF F neutrophils, absolute count 3.74 x10'3 /uL 1.5-8. 0 Not Available [facility] (Lab) [address] [place], [address], 06/26/2024 12:06:32 06/26/20 24 06/26/2024 CBC/C OMPLE TE BLD COUNT W/DIF F lymphocytes, absolute count 2.19 x10'3 /uL 1.07-3 .43 Not Available [facility] (Lab) [address] [place], [address], 06/26/2024 12:06:32 06/26/20 24 06/26/2024 CBC/C OMPLE TE BLD COUNT W/DIF F monocytes, absolute count 0.59 x10'3 /uL 0.29-0 .99 Not Available [facility] (Lab) [address] [place], [address], 06/26/2024 12:06:32 06/26/20 24 06/26/2024 CBC/C OMPLE TE BLD COUNT W/DIF F eosinophils, absolute count 0.36 x10'3 /uL 0.02-0 .53 Not Available [facility] (Lab) [address] [place], [address], 06/26/2024 12:06:32 06/26/20 24 06/26/2024 CBC/C OMPLE TE BLD COUNT W/DIF F basophils, absolute count 0.06 x10'3 /uL 0.01-0 .08 Not Available [facility] (Lab) [address] [place], [address], 06/26/2024 12:06:32 06/26/20 24 06/26/2024 CBC/C OMPLE TE BLD COUNT W/DIF F immature granulocytes ,absolute 0.03 x10'3 /uL 0.00-0 .05 Not Available [facility] (Lab) [address] [place], [address], 06/26/2024 12:06:32 06/26/20 24 06/26/2024 CBC/C OMPLE TE BLD COUNT W/DIF F nucleated red blood cells 0.0 % -0 Not Available [facility] (Lab) [address] [place], [address], 06/26/2024 12:06:32 06/26/20 24 06/26/2024 CBC/C OMPLE TE BLD COUNT W/DIF F NRBC# 0.00 x10'3 /uL Not Available [facility] (Lab) [address] [place], [address], 06/26/2024 12:06:32 06/26/20 24 06/26/2024 LIPID PANEL cholesterol 131 mg/dL 140-19 9 low NIH ZACK NSUS RECOM MENDA TION FOR DEBBY STERO L: ADULT CHILD LOW RISK: <200 <170 BORDE RLINE : <200- 239 ----- HIGH RISK: >240 >200 Not Available [facility] (Lab) [address] [place], [address], 06/26/2024 12:26:44 06/26/2006/26/2024 LIPID PANEL triglyceride s 105 mg/dL 0-150 NIH ZACK NSUS REPOR T RECOM MENDA TION FOR TRIGL YCERI REECE: ADULT CHILD LOW RISK: <150 ----- BODER LINE: 150-1 99 ----- HIGH RISK: >200 ----- Not Available [facility] (Lab) [address] [place], [address], 06/26/2024 12:26:44 06/26/20 24 06/26/2024 LIPID PANEL HDL cholesterol 59 mg/dL 40- Not Available [facility] (Lab) [address] [place], [address], 06/26/2024 12:26:44 06/26/2006/26/2024 LIPID PANEL LDL cholesterol, calculated 51 mg/dL 0-130 NIH ZACK NSUS REPOR T RECOM MENDA TIONS FOR LDL: ADULT CHILD LOW RISK <130 <110 (OPTI MAL LDL) <100 ----- BORDE RLINE : 130-1 59 ----- HIGH RISK: >160 >130 A TRIGL YCERI DE RESUL T >400 INVAL IDATE S THE CALCU LATIO N FOR LDL FRACT IONAT ION - THE LDL RESUL T WILL NOT BE REPOR EREN. Not Available [facility] (Lab) [address] [place], [address], 06/26/2024 12:26:44 06/26/20 24 06/26/2024 COMPR EHENS LELAND METAB OLIC PANEL sodium 138 mmol/ L 137-14 5 Not Available [facility] (Lab) [address] [place], [address], 06/26/2024 12:26:46 06/26/20 24 06/26/2024 COMPR EHENS LELAND METAB OLIC PANEL potassium 4.5 mmol/ L 3.5-5. 1 Not Available [facility] (Lab) [address] [place], [address], 06/26/2024 12:26:46 06/26/20 24 06/26/2024 COMPR EHENS LELAND METAB OLIC PANEL chloride 104 mmol/ L 98-107 Not Available [facility] (Lab) [address] [place], [address], 06/26/2024 12:26:46 06/26/20 24 06/26/2024 COMPR EHENS LELAND METAB OLIC PANEL carbon dioxide 31 mmol/ L 22-30 high Not Available [facility] (Lab) [address] [place], [address], 06/26/2024 12:26:46 06/26/20 24 06/26/2024 COMPR EHENS LELAND METAB OLIC PANEL anion gap 7.5 mmol/ L 14-22 low Not Available [facility] (Lab) [address] [place], [address], 06/26/2024 12:26:46 06/26/20 24 06/26/2024 COMPR EHENS LELAND METAB OLIC PANEL glucose 134 mg/dL 70-99 high Not Available [facility] (Lab) [address] [place], [address], 06/26/2024 12:26:46 06/26/20 24 06/26/2024 COMPR EHENS LELAND METAB OLIC PANEL BUN 12 mg/dL 8-19 Not Available [facility] (Lab) [address] [place], [address], 06/26/2024 12:26:46 06/26/20 24 06/26/2024 COMPR EHENS LELAND METAB OLIC PANEL creatinine 0.71 mg/dL 0.66-1 .25 Not Available [facility] (Lab) [address] [place], [address], 06/26/2024 12:26:46 06/26/20 24 06/26/2024 COMPR EHENS LELAND METAB OLIC PANEL GFR >60 Refer ence Range : [place] ge GFR Healt hy Adult : >60 mL/mi n/1.7 3 m2 Chron ic Kidne y Disea se: 15-60 mL/mi n/1.7 3 m2 Kidne y Failu re: <15/m L/min /1.73 m2 www.n iddk. nih.g ov The MDRD study equat ion has not been valid ated in child jamari <18 years of age; pregn ant women ; the elder ly >85 years of age; or in some racia l or ethni c subgr oups, such as [facility] nics. Outsi de the valid ated piedad eters , estim ated GFR is less accur ate, requi ring clini clifton judgm ent on a case- by-ca se basis . Clini clifton inter preta tion for other races and ages must be made by the clini segundo. The MDRD study equat ion has not been valid ated for the evalu ation of serum creat inine relat ed to nutri fransico l statu s or medic ation usage . For perso ns <18 years of age, a pedia tric GFR calcu lator is avail able on the [facility] websi te: https ://latosha dunn.rambo milligan.o rg/pr ofess ional s/kdo qi/gf r_cal culat or Not Available [facility] (Lab) [address] [place], [address], 06/26/2024 12:26:46 06/26/20 24 06/26/2024 COMPR EHENS LELAND METAB OLIC PANEL alkaline phosphatase 70 U/L 38-126 Not Available [facility] (Lab) [address] [place], [address], 06/26/2024 12:26:46 06/26/20 24 06/26/2024 COMPR EHENS LELAND METAB OLIC PANEL alanine aminotransfe rase 13 U/L 0-35 Not Available [facility] (Lab) [address] [place], [address], 06/26/2024 12:26:46 06/26/20 24 06/26/2024 COMPR EHENS LELAND METAB OLIC PANEL aspartate aminotransfe rase 29 U/L 15-37 Not Available [facility] (Lab) [address] [place], [address], 06/26/2024 12:26:46 06/26/20 24 06/26/2024 COMPR EHENS LELAND METAB OLIC PANEL bilirubin, total 0.40 mg/dL 0.20-1 .30 Not Available [facility] (Lab) [address] [place], [address], 06/26/2024 12:26:46 06/26/20 24 06/26/2024 COMPR EHENS LELAND METAB OLIC PANEL calcium 9.4 mg/dL 8.4-10 .2 Not Available [facility] (Lab) [address] [place], [address], 06/26/2024 12:26:46 06/26/20 24 06/26/2024 COMPR EHENS LELAND METAB OLIC PANEL total protein 6.1 g/dL 6.3-8. 2 low Not Available [facility] (Lab) [address] [place], [address], 06/26/2024 12:26:46 06/26/20 24 06/26/2024 COMPR EHENS LELAND METAB OLIC PANEL albumin 3.5 g/dL 3.0-4. 4 Not Available [facility] (Lab) [address] [place], [address], 06/26/2024 12:26:46 06/26/20 24 06/26/2024 COMPR EHENS LELAND METAB OLIC PANEL globulin 2.6 g/dL 2.6-4. 2 Not Available [facility] (Lab) [address] [place], [address], 06/26/2024 12:26:46 06/26/20 24 06/26/2024 COMPR EHENS LELAND METAB OLIC PANEL A/G ratio 1.3 ratio 1.0-2. 0 Not Available [facility] (Lab) [address] [place], [address], 06/26/2024 12:26:46 06/26/20 24 06/26/2024 MAGNE SIUM magnesium 2.0 mg/dL 1.6-2. 3 Not Available [facility] (Lab) [address] [place], [address], 06/26/2024 12:26:48 06/26/20 24 06/26/2024 VITAM IN D 25-HY DROXY [id number] 45.5 NG/mL 30-100 Vitam in D Statu s: Defic ient: <20 ng/mL Insuf ficie nt: 20-29 ng/mL Suffi cient : 30-10 0 ng/mL Not Available [facility] (Lab) [address] [place], [address], 06/26/2024 12:38:24 06/26/20 24 06/26/2024 T4 FREE free T4 1.12 NG/dL 0.78-2 .19 Not Available [facility] (Lab) [address] [place], [address], 06/26/2024 12:38:29 06/26/20 24 06/26/2024 TSH thyroid-stim ulating hormone 3.460 uIU/m L 0.465- 4.680 Not Available [facility] (Lab) [address] [place], [address], 06/26/2024 12:53:02 06/26/20 24 06/26/2024 VITAM IN B12 (YAZMIN DESMOND ) vb12 605 pg/mL 239-93 1 Not Available [facility] (Lab) [address] [place], [address], 06/26/2024 13:11:46 09/22/19 25 09/22/2024 CBC/C OMPLE TE BLD COUNT W/DIF F white blood cells 7.1 x10'3 /uL 4.2-10 .8 Not Available [facility] (Lab) [address] [place], [address], 09/22/2024 11:47:59 09/22/19 25 09/22/2024 CBC/C OMPLE TE BLD COUNT W/DIF F red blood cells 3.94 x10'6 /uL 3.80-5 .20 Not Available [facility] (Lab) [address] [place], [address], 09/22/2024 11:47:59 09/22/19 25 09/22/2024 CBC/C OMPLE TE BLD COUNT W/DIF F hemoglobin 12.7 g/dL 12.0-1 5.6 Not Available [facility] (Lab) [address] [place], [address], 09/22/2024 11:47:59 09/22/19 25 09/22/2024 CBC/C OMPLE TE BLD COUNT W/DIF F hematocrit 38.0 % 35.7-4 5.7 Not Available [facility] (Lab) [address] [place], [address], 09/22/2024 11:47:59 09/22/19 25 09/22/2024 CBC/C OMPLE TE BLD COUNT W/DIF F mean red cell volume 96.4 fL 82.0-9 9.0 Not Available [facility] (Lab) [address] [place], [address], 09/22/2024 11:47:59 09/22/19 25 09/22/2024 CBC/C OMPLE TE BLD COUNT W/DIF F mean red cell hemoglobin 32.2 pg 27.0-3 3.0 Not Available [facility] (Lab) [address] [place], [address], 09/22/2024 11:47:59 09/22/19 25 09/22/2024 CBC/C OMPLE TE BLD COUNT W/DIF F mean RBC HGB concentratio n 33.4 g/dL 31.0-3 6.0 Not Available [facility] (Lab) [address] [place], [address], 09/22/2024 11:47:59 09/22/19 25 09/22/2024 CBC/C OMPLE TE BLD COUNT W/DIF F red cell distribution width 14.7 % 11.8-1 5.5 Not Available [facility] (Lab) [address] [place], [address], 09/22/2024 11:47:59 09/22/19 25 09/22/2024 CBC/C OMPLE TE BLD COUNT W/DIF F platelets 268 x10'3 /uL 150-40 0 Not Available [facility] (Lab) [address] [place], [address], 09/22/2024 11:47:59 09/22/19 25 09/22/2024 CBC/C OMPLE TE BLD COUNT W/DIF F mean platelet volume 11.0 fL 9.0-12 .4 Not Available [facility] (Lab) [address] [place], [address], 09/22/2024 11:47:59 09/22/19 25 09/22/2024 CBC/C OMPLE TE BLD COUNT W/DIF F neutrophils 62.7 % 39.0-7 2.0 Not Available [facility] (Lab) [address] [place], [address], 09/22/2024 11:47:59 09/22/19 25 09/22/2024 CBC/C OMPLE TE BLD COUNT W/DIF F lymphocytes 25.7 % 16.0-4 7.0 Not Available [facility] (Lab) [address] [place], [address], 09/22/2024 11:47:59 09/22/19 25 09/22/2024 CBC/C OMPLE TE BLD COUNT W/DIF F monocytes 6.9 % 5.0-12 .0 Not Available [facility] (Lab) [address] [place], [address], 09/22/2024 11:47:59 09/22/19 25 09/22/2024 CBC/C OMPLE TE BLD COUNT W/DIF F eosinophils 3.6 % 1.0-7. 0 Not Available [facility] (Lab) [address] [place], [address], 09/22/2024 11:47:59 09/22/19 25 09/22/2024 CBC/C OMPLE TE BLD COUNT W/DIF F basophils 0.7 % 0.0-2. 0 Not Available [facility] (Lab) [address] [place], [address], 09/22/2024 11:47:59 09/22/19 25 09/22/2024 CBC/C OMPLE TE BLD COUNT W/DIF F immature granulocytes 0.4 % 0.00-0 .50 Not Available [facility] (Lab) [address] [place], [address], 09/22/2024 11:47:59 09/22/19 25 09/22/2024 CBC/C OMPLE TE BLD COUNT W/DIF F neutrophils, absolute count 4.47 x10'3 /uL 1.5-8. 0 Not Available [facility] (Lab) [address] [place], [address], 09/22/2024 11:47:59 09/22/19 25 09/22/2024 CBC/C OMPLE TE BLD COUNT W/DIF F lymphocytes, absolute count 1.83 x10'3 /uL 1.07-3 .43 Not Available [facility] (Lab) [address] [place], [address], 09/22/2024 11:47:59 09/22/19 25 09/22/2024 CBC/C OMPLE TE BLD COUNT W/DIF F monocytes, absolute count 0.49 x10'3 /uL 0.29-0 .99 Not Available [facility] (Lab) [address] [place], [address], 09/22/2024 11:47:59 09/22/19 25 09/22/2024 CBC/C OMPLE TE BLD COUNT W/DIF F eosinophils, absolute count 0.26 x10'3 /uL 0.02-0 .53 Not Available [facility] (Lab) [address] [place], [address], 09/22/2024 11:47:59 09/22/19 25 09/22/2024 CBC/C OMPLE TE BLD COUNT W/DIF F basophils, absolute count 0.05 x10'3 /uL 0.01-0 .08 Not Available [facility] (Lab) [address] [place], [address], 09/22/2024 11:47:59 09/22/19 25 09/22/2024 CBC/C OMPLE TE BLD COUNT W/DIF F immature granulocytes ,absolute 0.03 x10'3 /uL 0.00-0 .05 Not Available [facility] (Lab) [address] [place], [address], 09/22/2024 11:47:59 09/22/19 25 09/22/2024 CBC/C OMPLE TE BLD COUNT W/DIF F nucleated red blood cells 0.0 % -0 Not Available [facility] (Lab) [address] [place], [address], 09/22/2024 11:47:59 09/22/19 25 09/22/2024 CBC/C OMPLE TE BLD COUNT W/DIF F NRBC# 0.00 x10'3 /uL Not Available [facility] (Lab) [address] [place], [address], 09/22/2024 11:47:59 12/01/19 24 MAMMO , scree juliana, digit al, bilat eral [facility] [address] [place] [address] Patien t Name: RENETTA TORRES Access ion #: [id number] Sex: F : 1935 8 Dictat ed By: Aaliyah Koehler Attend ing Physic emy: ALMA SULLIVAN CE Orderi ng Physic emy: ALMA SULLIVAN CE Exam Date: 2023 08:15 AM Exam Name: MG JOSE Ramirez SHANTELLE BILAT SCREEN Admitt ing Diagno sis(es ): CLINIC AL HISTOR Y: Screen ing COMPAR JOEL STUDY: 3; 2 TECHNI QUE: Using a full field digita l 2D mammog rik unit CC and MLO views of both breast s are perfor med. FINDIN GS: BREAST COMPOS ITION: There are scatte red areas of fibrog landul ar densit y in the bilate ral breast s. No suspic ious masses , yvonne ectura l distor tion, asymme tries or suspic ious calcif icatio ns in both breast s. IMPRES TATE: No eviden ce of malign jacobo. Recomm end annual mammog dulec. BIRADS : 2 - Benign Electr onical ly Signed by: Aaliyah Koehler at 2023 09:54: 26 AM Page 1 [email or web address] [facility] (Imaging) [address] [place], [address], 12/01/2023 10:57:08 12/20/1912/20/2023 XR, lumba r spine [facility] [address] [place] [address] Patien t Name: RENETTA TORRES Access ion #: [id number] Sex: F : 1935 5 Dictat ed By: Will Shah Attend ing Physic emy: ALMA SULLIVAN CE Orderi Physic emy: ALMA SULLIVAN CE Exam Date: 2023 11:06 AM Exam Name: XR L SPINE Admitt ing Diagno sis(es ): INDICA TION: low back pain COMPAR JOEL: None TECHNI QUE: 3 views of the lumbar spine were obtain ed. FINDIN GS: The lumbar verteb ral alignm ent is normal . The interv ertebr al disc spaces are well-m aintai julio. No signif icant facet arthro dhaval is noted. No acute fractu re, verteb ral compre ssion deform ity or aggres sive osseou s lesion s. The parave rtebra l soft tissue s are grossl y unrema rkable . 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 IMPRES TATE: No acute fractu re or trauma tic sublux ation. 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 Electr onical ly Signed by: Will Shah at 2023 11:56: 12 AM Page [address] (Imaging) [address] [place], [address], 12/20/2023 14:11:35 12/20/19 24 12/20/2023 XR, thora cic spine , 2 view [facility] [address] [place] [address] Patien t Name: RENETTA TORRES Y Access ion #: [id number] Sex: F : 1935 5 Dictat ed By: Will Shah Attend ing Physic emy: ALMA SULLIVAN CE Orderi Physic emy: ALMA SULLIVAN CE Exam Date: 2023 11:06 AM Exam Name: XR T SPINE 2V Admitt ing Diagno sis(es ): ACCESS ION #: [id number] INDICA TION: thorac ic back pain COMPAR JOEL: None TECHNI QUE:3 views of the thorac ic spine were obtain ed. FINDIN GS: The thorac ic verteb ral alignm ent is normal . The interv ertebr al disc spaces are well-m aintai julio. No signif icant facet arthro dhaval is noted. No acute fractu re, verteb ral compre ssion deform ity or aggres sive osseou s lesion s. The imaged thorax and abdome n are grossl y unrema rkable . IMPRES TATE: No acute fractu re. Electr onical ly Signed by: Will Shah at 2023 11:56: 39 AM Page [address] (Imaging) [address] [place], [address], 12/20/2023 14:11:36 12/23/19 24 12/23/2023 CT, abdom en + pelvi s, w/o contr ast [facility] [address], [place] [address] Patien t Name: RENETTA TORRES ion #: [id number] Sex: F : 1935 11 Dictat ed By: Gavin Salgado ms Attend ing Physic emy: ALMA SULLIVAN CE Orderi ng Physic emy: ALMA SULLIVAN CE Exam Date: 2023 09:45 AM Exam Name: CT ABDOME N PELVIS WO Admitt ing Diagno sis(es ): Exam: CT abdome n and Pelvis withou t contra st Histor y: Abdome n pain Compar joel Study: None availa ble at time of dictat ion. TECHNI QUE: Multid etecto r CT of the abdome n was perfor med from lung bases to pubic symphy sis. Imagin g was perfor med withou t IV contra st. Axial, biggs l and sagitt al multip lanar reform ats were obtain ed from the axial data set by the techno logist . 900 mL barium sulfat e oral contra st was given Radiat ion Dose Inform ation: CT Dose: CTDI volume is 14.9 mGy. Dose-l ength produc t is 866 mGy*cm FINDIN GS: Evalua tion of solid organs is limite d due to lack of intrav enous contra st use. Findin gs: Lung Bases: No acute or signif icant lung base findin g. Normal heart size. No pleura l or perica rdial effusi on. Liver: The liver is normal in size. There is a water densit y lesion in the right lobe measur ing 2.2 cm compat ible with a cyst. There are smalle r low-de nsity lesion s in the liver which are too small to charac terize but may reflec t cysts. Gallbl adder and Biliar y Tree: The gallbl adder is surgic ally absent . No biliar y ductal dilata tion. 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 Adrena l Glands : Unrema rkable Kidney s: Left renal atroph y. Right cortic al renal cysts, subcen timete r in size. No eviden ce of intrar enal calcul i or hydron ephros is. Bladde r: Grossl y unrema rkable for degree of disten tion. Bowel: The stomac h is grossl y normal in appear ance. Small bowel is normal in calibe r and opacif ied with contra st. There are scatte red coloni c divert icula. No eviden ce of acute divert iculit is. The append ix is visual ized and is normal in calibe r withou t inflam matory change s. Ascite s: Absent Lympha denopa thy: No mesent alka, retrop eriton eal or peripo rtal lympha denopa thy. Abdomi nal Wall and Mesent rpuali: Unrema rkable . Vascul ature: The visual ized abdomi nal aorta is normal in size and calibe r. Evalua tion of abdomi nal and pelvic vessel s is limite d due to lack of intrav enous contra st. Pelvic Organs : Unrema rkable Muscul oskele ann: No aggres sive focal bony lesion s, acute fractu res or disloc ation. Multil evel degene rative change s in the lumbar spine. Soft tissue s: Unrema rkable IMPRES TATE: 1. No acute abdomi nal or pelvic findin g. 2. Divert iculos is of the sigmoi d colon. No eviden ce of acute divert iculit is. 3. Hepati c and renal cysts. Radiat ion optimi zation : All CT scans at this facili ty use at least one of these dose optimi zation techni ques: automa eren exposu re contro l mA and/or kV adjust ment per patien t size (inclu reece target ed exams where dose is matche d to clinic al indica tion) or iterat leland recons tructi on. Electr onical ly Signed by: Gavin Salgado ms at 2023 10:28: 49 AM Page [address] (Imaging) [address] [place], [address], 12/23/2023 12:30:51 03/29/20 24 03/28/2024 elect romyo gram + nerve condu ction study No observ ation record ed. [address], [place], [address], 03/29/2024 14:11:22 04/18/20 24 04/18/2024 XR, knee No observ ation record ed. [address], [place], [address], 04/19/2024 06:47:04 04/18/20 24 04/18/2024 CT, brain , w/o contr ast No observ ation record ed. [address], [place], [address], 04/19/2024 06:48:02 04/18/20 24 04/18/2024 CT, cervi clifton spine , w/o contr ast No observ ation record ed. [address], [place], [address], 04/19/2024 06:50:20 12/10/19 25 12/09/2024 imagi ng/di agnos tic resul t No observ ation record ed. [address], [place], [address], 12/09/2024 14:36:24 Result Notes None recorded. Problems Name Problem SNOMED Code Status Onset Date Resolution Date Notes Provider Name and Address Organization Details Recorded Time Closed fracture of fifth metatarsal bone of left foot 7210246951963 9104 Active 2020 Not Available [facility] 4 22:34:37 Disorder of shoulder 376631064 Active Not Available [facility] 4 22:34:37 Hammer toe 563720849 Active 2017 Not Available [facility] 4 22:34:37 Postoperat leland care Active 2020 Not Available [facility] 4 22:34:37 Hyperchole sterolemia 20750412 Active 2017 Not Available [facility] 4 22:34:37 Heartburn 13015540 Active 2017 Not Available [facility] 4 22:34:37 Blood glucose outside reference range 157768314 Active Not Available [facility] 4 22:34:37 [place] - lesion 313017095 Active 2019 Not Available [facility] 4 22:34:37 Lumbar sprain 681488471 Active Not Available [facility] 4 22:34:37 Gastroesop hageal reflux disease 146493477 Active Not Available [facility] 4 22:34:37 Screening mammograph y Active 2021 Not Available [facility] 4 22:34:37 Headache 66117805 Active 2017 Not Available [facility] 4 22:34:37 Pure hyperchole sterolemia 729128034 Active Not Available [facility] 4 22:34:37 Low back pain 875255483 Active 2022 Not Available [facility] 4 22:34:37 Tear of medial meniscus of knee 302326569 Active 2019 Not Available [facility] 4 22:34:37 Vitamin D deficiency 23218938 Active 2021 Not Available [facility] 4 22:34:37 Migraine 81578460 Active Not Available [facility] 4 22:34:37 Essential hypertensi on 55682716 Active Not Available [facility] 4 22:34:37 Osteoporos is 38489303 Active 2022 Not Available [facility] 4 22:34:37 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 Not Available [facility] 4 22:34:37 Delayed healing of surgical wound 792326445 Active 2020 Not Available [facility] 4 22:34:37 Dystrophia unguium 72027068 Active 2017 Not Available [facility] 4 22:34:37 Abdominal pain 05029062 Active 2023 Not Available [facility] 4 22:34:37 Fatigue 38945439 Active 2023 Not Available [facility] 4 22:34:37 Thoracic back pain 089769423 Active 2023 Marion Beth CMA null, [facility] 4 11:17:10 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 Freddy Sullivan MD [address], [place], [address] , [facility] 4 11:43:26 Neuropathy 917568559 Active 2023 Audelia Michael null, [facility] 4 11:48:42 Pain of left hip joint 1766990838419 00 Active 2024 Freddy Sullivan MD [address], [place], [address] , [facility] 5 10:41:52 Notes:back/neck problems, ey e problems, urinary, swollen glands/lymph nodes, dry mouth Problem Notes None recorded. Procedures Surgical History Date Name Laterality Status Provider Name and Address Organization Details Recorded Time 1 Most Recent Bone Density completed Not Available [facility] 10/07/2022 05:54:18 Imaging Results Imaging Date Name Status LastModified by Organization Details LastModified Time 12/01/2023 MAMMO, screening, digital, bilateral completed [address] (Imaging) [address] [place], [address], 12/01/2023 10:57:08 12/20/2023 XR, lumbar spine completed [address] (Imaging) [address] [place], [address], 12/20/2023 14:11:35 12/20/2023 XR, thoracic spine, 2 view completed [address] (Imaging) [address] [place], [address], 12/20/2023 14:11:36 12/23/2023 CT, abdomen + pelvis, w/o contrast completed [address] (Imaging) [address] [place], [address], 12/23/2023 12:30:51 03/28/2024 electromyogram + nerve conduction study completed [address], [address], 03/29/2024 14:11:22 04/18/2024 XR, knee completed [address], [address], 04/19/2024 06:47:04 04/18/2024 CT, brain, w/o contrast completed [address], [address], 04/19/2024 06:48:02 04/18/2024 CT, cervical spine, w/o contrast completed [address], [address], 04/19/2024 06:50:20 12/09/2024 imaging/diagnostic result active [address], [address], 12/09/2024 14:36:24 Procedure Notes None recorded. Medical Equipment None Reported. Allergies Allergen ID Allergen Name Allergen Category Reaction Reaction Severity Criticality Documentation Date Start Date Code Code System Note Provider Name and Address Organization Details Recorded Time 05195 morphine medicatio n diarrhea moderate Not available 10/07/2022 7052 RxNorm Not Available [facility] 3 06:14:39 36649 codeine medicatio n rash moderate Not available 10/07/2022 2670 RxNorm Not Available [facility] 3 06:14:39 Medications Name Sig Start Date Stop Date Status Note LastModified by Organization Details LastModified Time cyclobenzap rine 10 mg tablet Take 1 tablet three times daily 11/14 completed Not Available Not Available Not Available amoxicillin 500 mg capsule Take 1 capsule 3 times a day by oral route for 10 days. active Not Available Not Available No t Available prednisone 10 mg tablet active Not Available Not Available Not Available atorvastati n 20 mg tablet TAKE 1 TABLET DAILY 2024 active Not Available Not Available Not Avai lable ammonium lactate 12 % lotion Apply 2 applicati ons every day by topical route as needed. active Not Available Not Available No t Available azithromyci n 250 mg tablet Take 2 TABLET EVERY DAY by oral route for 1 day then one daily 10/08 completed Not Available Not Available Not Available benzonatate 200 mg capsule Take 1 capsule 3 times a day by oral route. active Not Available Not Available No t Available hydrocodone 5 mg-acetamin ophen 325 mg tablet TAKE 1 TABLET BY MOUTH EVERY 8 HOURS NEEDED FOR PAIN 08/12 completed Not Available Not Available Not Available lisinopril 20 mg tablet TAKE 1 TABLET DAILY 2024 active Not Available Not Available Not Avai lable alendronate 70 mg tablet TAKE 1 TABLET MONTHLY active Not Available Not Available No t Available lovastatin 40 mg tablet Take 1 tablet every day by oral route. 06/15 completed Not Available Not Available Not Available tramadol 50 mg tablet TAKE 1 TABLET BY MOUTH EVERY 6 HOURS active Not Available Not Available No t Available amitriptyli ne 50 mg tablet TAKE 1 TABLET DAILY AT BEDTIME 2024 active Not Available Not Available Not Avai lable triamcinolo ne acetonide 0.1 % topical cream APPLY TO AFFECTED AREA TWICE DAILY active Not Available Not Available No t Available ketorolac 10 mg tablet active Not Available Not Available Not Available meloxicam 7.5 mg tablet Take 1 tablet every day by oral route. active Not Available Not Available No t Available lorazepam 0.5 mg tablet Take 1 tablet 3 times a day by oral route. 11/16 completed Not Available Not Available Not Available Silvadene 1 % topical cream APPLY A 1/16 INCH (1.5 MM) THICK LAYER TO ENTIRE wound AREA BY TOPICAL ROUTE 2 TIMES PER DAY active Not Available Not Available No t Available Kenalog 10 mg/mL suspension for injection In office injection administe red by the provider 08/10 completed NDC: 0003- 0494- 20 Not Available Not Available Not Available baclofen 10 mg tablet Take 1 tablet 3 times a day by oral route. 2022 active Not Available Not Available Not Avai lable cephalexin 500 mg capsule 01/14 completed Not Available Not Available Not Available erythromyci n 5 mg/gram (0.5 %) eye ointment active Not Available Not Available Not Available propranolol ER 80 mg capsule,24 hr,extended release TAKE 1 CAPSULE DAILY 2024 active Not Available Not Available Not Avai lable omeprazole 20 mg capsule,del ayed release TAKE 1 CAPSULE DAILY 2024 active Not Available Not Available Not Avai lable piroxicam 10 mg capsule active Not Available Not Available Not Available levofloxaci n 500 mg tablet Take 1 tablet every 24 hours by oral route. active Not Available Not Available No t Available methylpredn isolone 4 mg tablets in a dose pack TAKE BY MOUTH DIRECTED active Not Available Not Available No t Available Aspir-81 qd 06/15 completed Not Available Not Available Not Available Os-Clifton 500 + D3 daily 07/27 completed Not Available Not Available Not Available multivitami n daily 07/27 completed Not Available Not Available Not Available lidocaine (PF) 10 mg/mL (1 %) injection solution In office injection administe red by the provider 08/10 completed NDC: 0409- 4276- 17 Not Available Not Available Not Available Fluzone High-Dose 2642-2452 (PF) 180 mcg/0.5 mL intramuscul ar syringe 11/19 completed Not Available Not Available Not Available Fluzone High-Dose (PF) 180 mcg/0.5 mL intramuscul ar syringe 05/20 completed Not Available Not Available Not Available Vitals Date Recorded Body height Body mass index (BMI) Body weight Heart rate Body temperature Oxygen saturation Oxygen saturation in Arterial blood by Pulse oximetry Systolic blood pressure Diastolic blood pressure Provider Name and Address Organization Details Last Updated DateTime 4 162.56 cm 26.4 kg/m2 47956.2 2 g 81 /min 97 [degF] 96 % 96 % 120 mm[Hg] 72 mm[Hg] Lolis Clarke Aasonn [facility] Tame [facility] 4 11:40:33 Date Recorded Body height Body mass index (BMI) Body weight Heart rate Body temperature Oxygen saturation Oxygen saturation in Arterial blood by Pulse oximetry Systolic blood pressure Diastolic blood pressure Provider Name and Address Organization Details Last Updated DateTime 4 162.56 cm 26.6 kg/m2 31983.8 2 g 70 /min 97.5 [degF] 95 % 95 % 142 mm[Hg] 78 mm[Hg] KE Guevara Aasonn [facility] [employer]ame [facility] 4 11:22:53 Date Recorded Body height Body mass index (BMI) Body weight Heart rate Body temperature Oxygen saturation Oxygen saturation in Arterial blood by Pulse oximetry Systolic blood pressure Diastolic blood pressure Provider Name and Address Organization Details Last Updated DateTime 4 162.56 cm 26.1 kg/m2 18038.0 4 g 65 /min 97.9 [degF] 97 % 97 % 124 mm[Hg] 82 mm[Hg] KE Guevara Aasonn [facility] Tame [facility] 4 11:21:15 Date Recorded Body height Body mass index (BMI) Body weight Heart rate Body temperature Oxygen saturation Oxygen saturation in Arterial blood by Pulse oximetry Systolic blood pressure Diastolic blood pressure Provider Name and Address Organization Details Last Updated DateTime 4 162.56 cm 26.1 kg/m2 25766.0 4 g 69 /min 97 [degF] 96 % 96 % 140 mm[Hg] 80 mm[Hg] KE Guevara Aasonn [facility] Tame [facility] 4 11:19:50 Date Recorded Body height Body mass index (BMI) Body weight Heart rate Body temperature Oxygen saturation Oxygen saturation in Arterial blood by Pulse oximetry Systolic blood pressure Diastolic blood pressure Provider Name and Address Organization Details Last Updated DateTime 5 162.56 cm 26.6 kg/m2 80859.8 2 g 85 /min 97 [degF] 98 % 98 % 122 mm[Hg] 78 mm[Hg] Lolis Vince [place] - [facility] [place] [employer] 5 10:27:42 Social History Question Answer Notes LastModified by Organization Details LastModified Time Tobacco Smoking Status Never Smoker Not Available [facility] 10/07/2022 05:53:39 Do You Have An Advance Directive? Yes MIGRATION.030 [id number] Information not available 10/07/2022 What Is Your Level Of Alcohol Consumption? None MIGRATION.030 [id number] Information not available 10/07/2022 Are You Blind Or Do You Have Difficulty Seeing? No MIGRATION.030 [id number] Information not available 10/07/2022 In The 14 Days Before Symptom Onset, Have You Had Close Contact With A Laboratory-conf irmed COVID-19 While That Case Was Ill? No MIGRATION.030 [id number] Information not available 10/07/2022 In The 14 Days Before Symptom Onset, Have You Had Close Contact With A Person Who Is Under Investigation For COVID-19 While That Person Was Ill? No MIGRATION.0301 [id number] Information not available 10/07/2022 Are You Deaf Or Do You Have Serious Difficulty Hearing? No MIGRATION.0301 075990 Information not available 10/07/2022 What Type Of Diet Are You Following? REGULAR MIGRATION.030 626149 Information not available 10/07/2022 Do You Or Have You Ever Used E-cigarettes Or Vape? Never Used Electronic Cigarettes MIGRATION.0301 617314 Information not available 10/07/2022 Have There Been Any Changes To Your Family Or Social Situation? Yes In 2020. MIGRATION.0301 [id number] Information not available 10/07/2022 What Is The Fluoride Status Of Your Home? Unknown MIGRATION.0301 181002 Information not available 10/07/2022 Are There Any Guns Present In Your Home? No MIGRATION.0301 363003 Information not available 10/07/2022 Do You Use Insect Repellent Routinely? Yes MIGRATION.0301 836347 Information not available 10/07/2022 Where Do You Live? SingleLevelHouse With Basement MIGRATION.0301 [id number] Information not available 10/07/2022 What Was The Date Of Your Most Recent Tobacco Screening? 02/17/2022 MIGRATION.0301 032830 Information not available 10/07/2022 What Is Your Relationship Status? MIGRATION.0301 817325 Information not available 10/07/2022 Do You Use Your Seat Belt Or Car Seat Routinely? Yes MIGRATION.0301 [id number] Information not available 10/07/2022 Do You Have Smoke And Carbon Monoxide Detectors In Your Home? Yes MIGRATION.0301 135372 Information not available 10/07/2022 Are You Passively Exposed To Smoke? No MIGRATION.0301 [id number] Information not available 10/07/2022 Do You Or Have You Ever Used Smokeless Tobacco? Never Used Smokeless Tobacco MIGRATION.0301 569152 Information not available 10/07/2022 Are There Any Smokers In Your House? No MIGRATION.0301 433107 Information not available 10/07/2022 Do You Feel Stressed (tense, Restless, Nervous, Or Anxious, Or Unable To Sleep At Night)? BM14209-5 MIGRATION.0301 039808 Information not available 10/07/2022 Do You Use Sunscreen Routinely? Yes MIGRATION.0301 062296 Information not available 10/07/2022 Has Tobacco Cessation Counseling Been Provided? No MIGRATION.0301 965392 Information not available 10/07/2022 Have You Recently Traveled Abroad? No MIGRATION.0301 [id number] Information not available 10/07/2022 Do You Have Any Dietary Restrictions? No MIGRATION.0301 010201 Information not available 10/07/2022 Do You Or Have You Ever Used Any Other Forms Of Tobacco Or Nicotine? No MIGRATION.0301 049850 Information not available 10/07/2022 Sex: Unknown Functional Status Question Answer Note LastModified by Organizat ion Details LastModified Time Do you have difficulty walking or climbing stairs? No had recent foot surgery MIGRATION.01147 23621 Information not available 10/07/2022 Do you have transportation difficulties? No MIGRATION.87900 29817 Information not available 10/07/2022 Are you able to walk? YESWOREST MIGRATION.25439 46206 Information not available 10/07/2022 Do you have difficulty doing errands alone? No MIGRATION.08808 74973 Information not available 10/07/2022 Are you able to care for yourself? Yes MIGRATION.40654 39903 Information not available 10/07/2022 Do you have difficulty dressing or bathing? No MIGRATION.21088 71394 Information not available 10/07/2022 What is your exercise level? Occasional MIGRATION.89092 71274 Information not available 10/07/2022 Mental Status Question Answer Note LastModified by Organizat ion Details LastModified Time Do you have difficulty concentrating, remembering or making decisions? No MIGRATION.[id number] 6 Information not available 10/07/2022 Family History Nothing Reported Notes:Mother 81 yea rs old Father 81 years old 5 Brothers 0 Living 7 Sisters 3 Living Mother Hx Pneumonia Father Hx CVA Sister Hx Ca of Ovary (1), [place] and [place] (1) , ICH(1), Brother Hx Ca of Colon (2) , Ca of Pancreas (1) , Ca of Lung(2) , CVA(1) Medical History Condition Response NERVE DISEASE N BLINDNESS N RHEUMATIC FEVER N KIDNEY STONES N BLADDER PROBLEMS N MRSA N OTHER # 1 N POLIO N LUNG DISEASE/DISORDER N HISTORY OF DRUG ABUSE N COPD N RADIATION / CHEMOTHERAPY N Other # 2 N BLOOD DISEASES N EAR OR HEARING PROBLEMS N MUMPS N SHINGLES N DEPRESSION (INCLUDING POST ) N BOWEL PROBLEMS N STROKE/TIA N ULCERS N BENIGN PROSTATIC HYPERPLASIA N MEASLES N HYPOTENSION N MYOCARDIAL INFARCTION N OBESITY N GERD/NAUSEA N ANEURYSM N URINARY/BLADDER/KIDNEY PROBLEMS N CORONARY ARTERY DISEASE (CAD) N ADDICTION CONCERNS N Impotence N ENDOMETRIOSIS N USE OF BLOOD THINNERS N SKIN PROBLEMS N GASTROINTESTINAL DISORDER N PERIPHERAL VASCULAR DISEASE N MUSCLE,JOINT OR BONE PROBLEMS N GASTROINTESTINAL BLEEDING N BLOOD CLOTS N ASTHMA N CATARACTS N ERECTILE DYSFUNCTION N VARICOSITIES N GI PROBLEMS N Low Testosterone N INFERTILITY N AIDS/HIV N CHEMOTHERAPY / RADIATION N LIVER DISEASE N MALE HYPOGONADISM N HYPERTENSION Y Deficiency N TOURETTE'S N ANXIETY DISORDER N BLOOD TRANSFUSION N ANEMIA/BLOOD DISORDER N CHRONIC EAR INFECTIONS N BRONCHITIS N TUBERCULOSIS N GLAUCOMA N FOOT PROBLEM N DIVERTICULITIS N SLEEP APNEA N CHICKENPOX N INFECTIOUS DISEASE N PROSTATE N HEART ARRHYTHMIA N INSOMNIA N HIGH CHOLESTEROL / HYPERLIPIDEMIA Y EYE PROBLEMS N HYPERTHYROIDISM N EDEMA N CHRONIC PAIN SYNDROME N HYPOTHYROIDISM N CAROTID BLOCKAGE N CONSTIPATION N BACK / NECK PROBLEMS Y HAVE YOU BEEN HOSPITALIZED OR SEEN IN [facility] IN THE PAST YEAR ? N ATHEROSCLEROSIS N BREAST PROBLEMS N DIALYSIS N ECZEMA N OSTEOPOROSIS N ARTHRITIS N NO SIGNIFICANT PAST MEDICAL HISTORY N APPENDICITIS N DIABETES, TYPE N BAD TEETH N ENT N HEARTBURN / REFLUX Y AUTISM SPECTRUM DISORDER (ASD) N HEPATITIS / LIVER DISEASE N GOUT N SLEEP DISORDER N ALZHEIMER'S DISEASE N Brain Problems N DEMENTIA N HERPES N SEIZURES/EPILEPSY N HEADACHES/MIGRAINES Y VASCULAR DISEASE N PACEMAKER N Blood Disorder N DIZZINESS N HEART DISEASE/HEART PROBLEMS N KIDNEY DISEASE N MULTIPLE SCLEROSIS N CANCER: SPECIFY N CARDIAC ARRHYTHMIA N ATRIAL FIBRILLATION N Gall Stones N PULMONARY EMBOLISM N AUTOIMMUNE DISEASE N Gynecological History Statement/Question Response Date of Last Mammogram 09/02/2020 Date of Last Colonoscopy Most Recent Bone Density 09/02/2020 Obstetrics History GPAL:G 0 P 0 0 0 0 Immunizations Vaccine Type Date Status Note Provider Nam e and Address Organization Details Recorded Time Influenza, split virus, trivalent, preservative 4 completed Not Available [facility] 09/02/2023 22:34:38 Influenza, high-dose, trivalent, PF 8 completed Not Available [facility] 09/02/2023 22:34:38 influenza, unspecified formulation 8 completed Not Available [facility] 09/02/2023 22:34:38 Influenza, split virus, trivalent, preservative 1 completed Not Available [facility] 09/02/2023 22:34:38 SARS-COV-2 (COVID-19) vaccine, UNSPECIFIED 1 completed Not Available [facility] 09/02/2023 22:34:38 SARS-COV-2 (COVID-19) vaccine, UNSPECIFIED 1 completed Not Available [facility] 09/02/2023 22:34:38 pneumococcal polysaccharide PPV23 7 completed Not Available [facility] 09/02/2023 22:34:38 Pneumococcal conjugate PCV 13 5 completed Not Available [facility] 09/02/2023 22:34:38 Pneumococcal conjugate PCV20, polysaccharide IQG155 conjugate, adjuvant, PF 4 completed KE Guevara, [place] - [place] [employer] [facility] 06/22/2024 12:14:35 Past Encounters Encounter ID Performer Location Encounter Start Date Encounter Closed Date Diagnosis/Indication Diagnosis SNOMED-CT Code Diagnosis ICD10 Code Diagnosis Note [id number] Eugene Arriaga DPM [facility] [address] [place] [id number] 0 01/09/2021 00:00:00 01/09/2021 12:23:14 [id number] Freddy Sullivan MD [facility] [place] [address] 01/14/2021 00:00:00 01/14/2021 15:38:23 [id number] Eugene Arriaga DPM [facility] [address] [place] [id number] 0 01/21/2021 00:00:00 01/21/2021 11:34:40 [id number] Eugene Arriaga DPM [facility] [address] [place] [id number] 0 01/30/2021 00:00:00 01/30/2021 12:21:31 [id number] Eugene Arriaga DPM [facility] [address] [place] [id number] 0 02/06/2021 00:00:00 02/06/2021 11:09:33 [id number] Freddy Sullivan MD [facility] [place] [address] 02/11/2021 00:00:00 02/11/2021 12:12:32 [id number] Eugene Arriaga DPM [facility] [address] [place] [id number] 0 02/13/2021 00:00:00 02/13/2021 15:38:35 [id number] Eugene Arriaga DPM [facility] [address] [place] [id number] 0 02/20/2021 00:00:00 02/20/2021 12:00:10 [id number] Eugene Arriaga DPM [facility] [address] [place] [id number] 0 02/27/2021 00:00:00 02/27/2021 12:30:17 [id number] Eugene Arriaga DPM [facility] [address] [place] [id number] 0 03/06/2021 00:00:00 03/06/2021 21:56:20 [id number] Eugene Arriaga DPM [facility] [address] [place] [id number] 0 03/13/2021 00:00:00 03/20/2021 13:18:40 [id number] Eugene Arriaga DPM [facility] [address] [place] [id number] 0 03/20/2021 00:00:00 03/20/2021 13:28:57 [id number] Eugene Arriaga DPM [facility] [address] [place] [id number] 0 03/27/2021 00:00:00 03/27/2021 14:26:42 [id number] Eugene Arriaga DPM [facility] [address] [place] [id number] 0 04/17/2021 00:00:00 04/17/2021 13:58:17 [id number] MD [facility] [place] [address] [address] [place] [address] [place] [address] 08/12/2021 00:00:00 08/12/2021 12:45:02 [id number] MD [facility] [place] [address] [place] [address] [place] [address] 02/17/2022 00:00:00 02/17/2022 12:05:05 [id number] MD [facility] [place] [address] [place] [address] [place] [address] 08/18/2022 00:00:00 08/18/2022 11:59:10 [id number] Freddy Sullivan MD [facility] Internal [facility] [place] [address] [place] [address] y [place], [place] [address] 02/19/2023 11:07:59 02/19/2023 11:54:02 Essential hypertension 27515147 I10 Pure hypercholesterolemia 539178436 E78.00 Osteoporosis 15803737 M8 1.0 [id number] Freddy Sullivan MD [facility] Internal Med [place] [address] [place] [address] [place] [address] 08/20/2023 11:11:38 08/20/2023 11:57:26 Abdominal pain 68181003 R10.9 Fatigue 36317578 R53.83 Screening for cardiovascular system disease 632635241 Z13.6 [id number] Freddy Sullivan MD [facility] Internal Med [facility] [address] [address] 12/20/2023 11:08:32 12/20/2023 11:42:44 Low back pain 294873477 M54.50 [id number] Freddy Sullivan MD [facility] Internal Med [place] [address] [place] [address] [place] [address] 02/17/2024 11:13:27 02/17/2024 11:53:26 Essential hypertension 05499153 I10 Hypercholesterolemia 136 12486 E78.00 Gastroesop hageal reflux disease 447687684 K21.9 Polyneuropathy 60916081 G62.9 Vitamin D deficiency 347 10655 E55.9 [id number] Freddy Sullivan MD [facility] Internal Med [place] [address] [place] [address] [place] [address] 06/22/2024 11:06:19 06/22/2024 12:07:41 Essential hypertension 60203480 I10 Hypercholesterolemia 136 41923 E78.00 Gastroesop hageal reflux disease 887592336 K21.9 Osteoporosis 12951105 M8 1.0 [id number] Freddy Sullivan MD [facility] Primary Care [place] [address] [facility] [address] [place] [address] 09/19/2024 10:09:03 09/19/2024 11:01:10 Essential hypertension 87413061 I10 Gastroesop hageal reflux disease 981698604 K21.9 Hypercholesterolemia 136 33933 E78.00 Neuropathy 450033972 G62 .9 Pain of le ft hip joint 3301700718 04985 M25.552 Health Concerns Section Related Observation LastModified by Organization Detai ls LastModified Time None Recorded Concern Status LastModified by Organization Details LastModified Time None Recorded Advance Directives Directive Y: Payers Encounter Date Sequence Insurance Name Policy Number Policy Pitt Covered Member ID Pitt Member ID Guarantor Name 08/20/2023 1 [employer] [place] - [place] - [place] - [place] - [place] - [place] (MEDICARE REPLACEMENT/ ADVANTAGE - PPO) Gail S Melissa [id number] Gail S Melissa 12/20/2023 1 [facility] MEDIC[facility] Gail S Melissa [id number] Gail S Melissa 12/20/2023 2 [place] [id number] Gail S Melissa [id number] Gail S Melissa 02/17/2024 1 [facility] MEDICARE Gail S Melissa [id number] Gail S Melissa 02/17/2024 2 [id number] Gail S Melissa [id number] Gail S Melissa 06/22/2024 1 [facility] [place] MEDICARE Gail S Melissa [id number] Gail S Melissa 06/22/2024 2 [id number] Gail S Melissa [id number] Gail S Melissa 09/19/2024 1 MEDIC[facility] B[facility] [place] [place] MEDICARE Gail S Melissa [id number] Gail S Melissa 09/19/2024 2 [place] [id number] Gail Torres [id number] Gail Torres Notes Date Note Type Note Provider Name and Address Organization Details Recorded Time 4 text/html Patient Name: Gail Goyal Of Service: Wednesday ( 08.20.2023 ): 1935 Age: 87 There has been approximately a 3 lb weight loss since 02/19/2023. This represents approximately a 1.9% change in weight. Weight change attributable to lifestyle changes. Vital Signs:Blood Pressure: Sitting Rt. Arm 120/72Pulse: Sitting 81 /min and RegularRespiratory Rate: 12Height 64 in or 1.6 mWeight 154 lb or 69.9 kgBMI 26.4Temperature: 97 F or 36.1 CPulse Oximetry: 96 % at rest on no oxygen Chief Complaint: Addressed in HPI Problems or conditions discussed in the HPI were the only ones reviewed during the encounter.Only social and family history addressed in the HPI were reviewed during this encounter. Attendant(s): NoneConstitutional and Systemic Symptoms:none Medication Reconciliation: from medication list. History of Present Illness #1. Recent episode of problems with atypical abdominal discomfort. More dyspepsia than really pain. Has had problems both with intermittent diarrhea and constipation. Denies any history of any anorexia. Has had a considerable amount of weight loss than actually on an intentional basis. This may be in part causing some of the bowel disturbances. Denies any history of any other systemic complaints no depression or any other signs or symptoms suggestive of a paraneoplastic syndrome.:Medication List Reviewed and Reconciled 4Alendronate Sodium 70 MG (TABLET - ORAL) Once MonthlyLipitor 20 MG (TABLET - ORAL) One DailyElavil 50 MG One HsAspirin 81 MG One DailyPrilosec 20 MG One Daily For RefluxInderal-la 80 MG One DailyLisinopril 20 MG One Daily For Blood PressureMultivitamin DailyOs-clifton D DailyADRs List Reviewed 4Codeine RashMorphine GiVaccination and Jqbfbfbjwhbm1354-23 Covid Cheihbc6828-20 Mvrykklpn8935-32 Tetanus Fuenxmo2753-24 Prevnar 13 Ba5097-39 Zostavax (shingles)2006- PneumovaxSurgical HistoryLumbar Laminectomy, Left Cataract, Rt. Cataract, Eye Lift, Lap Cholecystectomy, SEBASTIEN BSO, Lumbar LaminectomyPreventative Testing Confirmed by Our Zabnrcy8002/19/2023 ALBUMIN 3.9 G/DL N010/20/2022 MAMMOGRAM 401/ DEXA SCAN05/30/2018 HAIC 6.1 % H1 UOVGRZYXZWPII98/02/2014 CT PBDJXU8206/07/2014 UPPER RGVJYJHXF59/01/2011 COLONOSCOPY 01/07/2021ocial HistorySOCIAL HISTORY:Does not smoke cigarettes. 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 Arm 142/78Pulse: Sitting 70 /min and RegularRespiratory Rate: 12Height 64 in or 1.6 mWeight 155 lb or 70.3 kgBMI 26.6Temperature: 97.8 F or 36.6 C Chief Complaint: Addressed in HPI Problems or conditions discussed in the HPI were the only ones reviewed during the encounter.Only social and family history addressed in the HPI were reviewed during this encounter. Attendant(s): NoneConstitutional and Systemic Symptoms:none Medication Reconciliation: from medication list. History of Present Illness #1. Complaining of one-week history of some lower thoracic and lumbar sacral pain. Apparently was reaching down on the floor to pick something up felt something pull in the back. Has had previous back surgery on number of occasions in the past back in 1978 and 2012. There has no radicular component to the pain. There has no weakness, numbness, tingling or any other focal neurological symptoms or physical findings. This appears to be more muscular type of injury.: Active Medication ListAlendronate Sodium 70 MG (TABLET - ORAL) Once MonthlyLipitor 20 MG (TABLET - ORAL) One DailyElavil 50 MG One HsAspirin 81 MG One DailyPrilosec 20 MG One Daily For RefluxInderal-la 80 MG One DailyLisinopril 20 MG One Daily For Blood PressureMultivitamin DailyOs-clifton D Daily Adverse Drug Reactions ReviewedCodeine RashMorphine Gi Vaccination and Pdsfmkwintdp2985-96 Covid Chsudmf6023-43 Fzczaeiaa4557-07 Tetanus Lpbmqqr2490-74 Prevnar 13 Rf4278-11 Zostavax (shingles)2006- Pneumovax Surgical Xozktwn0551-40 Lumbar Mhvbynqqnaf5683-15 Left Xdeetcdc9610-65 Rt. Enkmrqjd7997-11 Eye Mgax4608-86 Lap Rzxgiqiwzzobrtp6656-82 [facility] CYA2898-74 Lumbar Laminectomy Preventative Usdgwyj3512/01/2023 MAMMOGRAM 5008/24/2023 ALBUMIN 3.7 G/DL N009/02/2020 DEXA SCAN05/30/2018 HAIC 6.1 % H1 IVGSZXTLETYJM01/02/2014 CT OSFWDA9906/07/2014 UPPER VWRKPRQTM63/01/2011 COLONOSCOPY 01/07/2021 Social HistorySOCIAL HISTORY:Does not smoke cigarettes. 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 Family HistoryFAMILY HISTORY:Mother 81 years oldFather 81 years old5 Brothers 0 Living7 Sisters 3 LivingMother Hx: PneumoniaFather Hx: CVASister Hx: Ca of Ovary (1), [place] and [place] (1) , ICH(1), BirthBrother Hx: Ca of Colon (2) , Ca of Pancreas (1) , Ca of Lung(2) , CVA(1) Freddy Sullivan MD [address] [facility], [facility] [address], [place], [address], [place] [employer] [facility] 12/20/2023 11:41:09 4 text/html Patient Name: Gail Goyal Of Service: February ( 02.17.2024 ): 1935 Age: 88 Chief Complaint: Addressed in HPI Problems or conditions discussed in the HPI were the only ones reviewed during the encounter.Only social and family history addressed in the HPI were reviewed during this encounter. Attendant(s): NoneConstitutional and Systemic Symptoms:none Medication Reconciliation: from medication list. History of Present Illness #1. Essential Hypertension: Stage: Stage I Interval Neurological Complaints no headaches, dizziness, weakness, visual changes, ataxia, aphasia and apraxia. No shortness of breath, orthopnea or cardiovascular symptoms. No other symptoms related to end organ damage. Pressure has been under excellent control. Currently normal. No other end organ symptoms or findings. Therapy reviewed regarding management of hypertension and includes salt restriction and Inderal-la and Lisinopril. #2. Type II Hypercholesterolaemia: Currently taking medication and tolerating well. No interval complaints of any muscle pain or arthralgia. No significant liver changes with medications. Last lipid panel: fair control. Therapy reviewed regarding treatment of cholesterol management and include diet and Lipitor. #3. Hx of esophageal reflux currently stable. Hx of Complications: none The severity, duration and intensity of symptoms have improved. Frequency: most meals Treatment consists medications taken on a regular basis. Current therapy includes Prilosec. There has been no nausea, eructation, vomiting, hematemesis, dysphagia, velopharyngeal insufficiency and odynophagia. No change in he frequency or intensity of symptoms. Has had no melena. Has had no . Discussed use of H2 antagonists and the possibility of trying to reduce the frequency of the use of any PPI inhibitors and try H2 antagonists to see if symptoms can be controlled with lease intensive therapy since a number of complications are associated with chronic prolonged use of PPI inhibitors. Active Medication ListAlendronate Sodium 70 MG (TABLET - ORAL) Once MonthlyLipitor 20 MG (TABLET - ORAL) One DailyElavil 50 MG One HsAspirin 81 MG One DailyPrilosec 20 MG One Daily For RefluxInderal-la 80 MG One DailyLisinopril 20 MG One Daily For Blood PressureMultivitamin DailyOs-clifton D Daily Adverse Drug Reactions ReviewedCodeine RashMorphine Gi Vaccination and Luabxcyzhymh0401-41 Covid Oupgbjk9376-51 Cqcmcecop5814-24 Tetanus Cmhupkd8863-01 Prevnar 13 Ha4119-66 Zostavax (shingles)2006- Pneumovax Surgical Hwsutyz6893-96 Lumbar Slhvbodalws0472-37 Left Uomqgojo7031-11 Rt. Ifheijfr5273-82 Eye Xgyg5583-56 Lap Vxcxuguvdpaskxf7135-90 SEBASTIEN FPE1999-97 Lumbar Laminectomy Preventative Bbcwlsf3112/01/2023 MAMMOGRAM 5008/24/2023 ALBUMIN 3.7 G/DL N009/02/2020 DEXA SCAN05/30/2018 HAIC 6.1 % H1 PQDZFCCTRQCLP93/02/2014 CT HVENWU5706/07/2014 UPPER KLUHFVMNY92/01/2011 COLONOSCOPY 01/07/2021 Social HistorySOCIAL HISTORY:Does not smoke cigarettes. 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 Family HistoryFAMILY HISTORY:Mother 81 years oldFather 81 years old5 Brothers 0 Living7 Sisters 3 LivingMother Hx: PneumoniaFather Hx: CVASister Hx: Ca of Ovary (1), [place] and [place] (1) , ICH(1), BirthBrother Hx: Ca of Colon (2) , Ca of Pancreas (1) , Ca of Lung(2) , CVA(1) Freddy Sullivan MD [address] [facility], [facility] [address], [place], [address], [place] [facility] [employer] [facility] [employer] 02/17/2024 11:45:09 4 text/html Patient Name: Gail Goyal Of Service: June ( 06.22.2024 ): 1935 Age: 88 Chief Complaint: Addressed in HPI Problems or conditions discussed in the HPI were the only ones reviewed during the encounter.Only social and family history addressed in the HPI were reviewed during this encounter. Attendant(s): NoneConstitutional and Systemic Symptoms:none Medication Reconciliation: from medication list. 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 Needle exam showed decreased motor unit potentials but no acute neurogenic changes. History of Present Illness #1. Essential Hypertension: Stage: Stage I Interval Neurological Complaints no headaches, dizziness, weakness, visual changes, ataxia, aphasia and apraxia. No shortness of breath, orthopnea or cardiovascular symptoms. No other symptoms related to end organ damage. Pressure has been under excellent control. Currently normal. No other end organ symptoms or findings. Therapy reviewed regarding management of hypertension and includes salt restriction. #2. Type II Hypercholesterolaemia: Currently taking medication and tolerating well. No interval complaints of any muscle pain or arthralgia. No significant liver changes with medications. Last lipid panel: fair control. Therapy reviewed regarding treatment of cholesterol management and include diet and Lipitor. #3. Hx of esophageal reflux currently stable. Hx of Complications: none The severity, duration and intensity of symptoms have improved. Frequency: most meals Treatment consists medications taken on intermittent basis. Current therapy includes Prilosec. There has been no nausea, eructation, vomiting, hematemesis, dysphagia, velopharyngeal insufficiency and odynophagia. No change in he frequency or intensity of symptoms. Has had no melena. Has had no . Discussed use of H2 antagonists and the possibility of trying to reduce the frequency of the use of any PPI inhibitors and try H2 antagonists to see if symptoms can be controlled with lease intensive therapy since a number of complications are associated with chronic prolonged use of PPI inhibitors. #4. osteoporosis. No new complaints of any additional back,hip or other musculoskeletal complaints related to the osteoporosis. No hx of any recent trauma. Currently taking OsCal-D and Fosamax. Has has had a recent DEXA scan done within the last year. The FRAX Score for Hip Fracture is NA hx osteoporosis FRAX score for major fractures NA hx of osteoporosis Active Medication ListAlendronate Sodium 70 MG (TABLET - ORAL) Once MonthlyLipitor 20 MG (TABLET - ORAL) One DailyElavil 50 MG One HsAspirin 81 MG One DailyPrilosec 20 MG One Daily For RefluxInderal-la 80 MG One DailyLisinopril 20 MG One Daily For Blood PressureMultivitamin DailyOs-clifton D Daily Adverse Drug Reactions ReviewedCodeine RashMorphine Gi Vaccination and Immunization( ) 2007-06 PNEUMOVAX( ) 2024-06 INFLUENZA( ) 2012-03 ZOSTAVAX (SHINGLES)( ) 2014-11 PREVNAR 13 GC( ) 2014-11 TETANUS BOOSTER( ) 2024-06 RSV( ) 2024-06 PREVNAR 20(X) 2021-07 COVID MODERNA Surgical Nkpkzni7856-31 Lumbar Lwglfztdyjz3809-78 Left Qyyhwdkn2603-08 Rt. Kxitfxlv6428-98 Eye Qqxk4739-86 Lap Cqyzzxqfmsnnfgp6923-70 [facility] JYV4931-67 Lumbar Laminectomy Preventative Testing( ) 05/02/2024 Optometry( ) 02/17/2024 Albumin 4.0 G/DL( ) 12/01/2023 Mammogram( ) 09/02/2020 DEXA Scan 09/02/2022( ) 05/30/2018 HAIC 6.1 % H( ) 05/28/2015 Ophthalmology( ) 07/10/2014 CT Thorax( ) 06/07/2014 Upper Endoscopy( ) 01/07/2011 Colonoscopy Social HistorySOCIAL HISTORY:Does not smoke cigarettes. 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
--- OUTSIDE RECORDS SUMMARY | 2024-12-09 16:32 | XMS_ITS | CONTINUITY OF CARE DOCUMENT ---
Author Name krysta chaparro Address Unknown Organization [facility] Address [address] [place] [address] Phone [phone] Care Team Providers Care Analytic Programmer Name Role Phone Christopher Garcia MD Unavailable [phone] SCOTT BRICE MD Unavailable SCOTT BRICE MD Unavailable [phone] PROBLEMS Condition Status Date Provider Notes HYPERCHOLESTEROLEMIA active David Gilman RN CHEST PAIN-TYPE TO BE DETERMINED active David Gilman RN HTN ESSENTIAL active Kayla Burns ENCOUNTERS Date Type Provider Location Encounter Diag nosis - In-person encounter Office Visit Christopher Garcia MD [facility] VITAL SIGNS Date Observation Value Provider [...] Policy type / Coverage type Elias red libertarian ID [employer] [id number] RAILROAD MEDICARE Medicare [id number] TREATMENT PLAN Date Name Performer signature: H [...]
--- OUTSIDE RECORDS SUMMARY | 2024-12-09 16:32 | XMS_ITS | Encounter Summary ---
Author Organization [facility] Address [address] [place] [address] Care Team Providers Care Commercial Pest Control Representative Name Role Phone Freddy Sullivan MD Primary Care Provider [phone] Encounter Details Date Type Department Care Team (Late st Contact [facility]) Description 06/22/2019 Lab Requisition [facility] Care DermPath Lab [address] [facility] [place] [address] Tomeka Jade DO [address] [facility] [address] [place] [address] Social History Tobacco Use Types Packs/Day Years Used Date Smoking Tobacco: Never Smokeless Tobacco: Never Alcohol Use Standard Drinks/Week Comments No 0 (1 standard drink = 0.6 oz pur e alcohol) Comments No Sex and Gender Information Value Date Recorded Sex Assigned at Not on file Legal Sex Female 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 ROOM SUPERVISOR Gender Identity Not on file Sexual Orientation Not on file documented as of this encounter Plan of Treatment Not on file documented as of this encounter Procedures Procedure Name Priority Date/Time Associated Diagnosis Comments DERMATOPATHOLOGY Routine 06/21/2019 12:0 0 AM WEAVE ROOM SUPERVISOR documented in this encounter Results * DERMATOPATHOLOGY (06/21/2019 12:00 AM WEAVE ROOM SUPERVISOR) Case Report Dermatopathology Report Case: [id number] Authorizing Provider: Tomeka Jade DO Collected: 06/21/2019 12:00 AM Ordering Location: [facility] Received: 06/22/2019 07:13 AM Pathologist: Ambika Boyd MD Specimens: A) - Skin, right nasal root B) - Skin, right upper arm C) - Skin, right lat thigh 12:35 PM [facility] Final Diagnosis Specimen A. SKIN, right nasal root: SEBACEOUS HYPERPLASIA (L73.8) Specimen B. SKIN, right upper arm: SEBORRHEIC KERATOSIS, IRRITATED (L82.0) Specimen C. SKIN, right lat thigh: BENIGN VERRUCOUS KERATOSIS (L82.1) (see microscopic description) 12:35 PM [facility] Clinical History A: Violette H R/O violette-ca. B: SK R/O atypia. C: R/O NMSC. 12:35 PM [facility] Gross Description Specimen A: Received is one formalin filled container labeled with the patient's name and designated right nasal root. The specimen consists of a shave measuring [id number]. Jar 0. Specimen B: Received is one formalin filled container labeled with the patient's name and designated right upper arm. The specimen consists of a shave measuring 9f3d7pu. Jar 0. Specimen C: Received is one formalin filled container labeled with the patient's name and designated right lat thigh. The specimen consists of a shave measuring 4t6h6jg. Jar 0. 12:35 PM [facility] Microscopic Description Specimen A. SKIN, right nasal root: There are prominent sebaceous gland lobules surrounding a dilated hair follicle. Specimen B. SKIN, right upper arm: There is acanthosis consisting of fairly uniform squamous cells with eosinophilic cytoplasm and squamous eddies. Specimen C. SKIN, right lat thigh: Sections show hyperkeratosis, papillomatosis, hypergranulosis, and acanthosis. These histological findings can be seen in a verruca vulgaris or a seborrheic keratosis. Additional deeper sections were obtained and reviewed. 12:35 PM [facility]ERMAT[facility] Disclaimer An external and internal positive and negative controls are appropriate for the histochemical, immunohistochemical and immunofluorescence stain(s) in this case (if any), except where stated explicitly. The performance characteristics of the stain(s) cited in this report were developed and its performance characteristic determined by the Dermatopathology Laboratory at [facility], directed by Dr. Tere Boyd. These tests need not be, and therefore are not, approved by the [place] Food and Drug Administration. The tests are used for clinical purposes. Billing Codes Specimen Charges Stain Charges 55142 78470 71435 1 1 1 9 12:35 PM WEAVE ROOM SUPERVISOR DERMATOPATHOLOGY LABORATORY Embedded Images 9 12:35 PM WEAVE ROOM SUPERVISOR DERMATOPATHOLOGY LABORATORY Pathology/Cytology TISSUE SPECIMEN FROM SKIN / Unknown 06/21/2019 06/22/2019 7:13 AM WEAVE ROOM SUPERVISOR Miscellaneous samples (specimen) TISSUE SPECIMEN FROM SKIN / Unknown 06/21/2019 06/22/2019 7:13 AM WEAVE ROOM SUPERVISOR Miscellaneous samples (specimen) TISSUE SPECIMEN FROM SKIN / Unknown 06/21/2019 06/22/2019 7:13 AM WEAVE ROOM SUPERVISOR Tomeka Jade DO LAB - PATHOLOGY/CYTOLOGY ORDERABLES Final Result DERMATOPATHOLOGY LABORATORY [facility] - Department of Dermatology [address] [place] [address], 5th Floor Lab [address] [phone] documented in this encounter Visit Diagnoses Not on filedocumented in this encounter Care Teams Commercial Pest Control Representative Relationship Specialty Start Date End Date Freddy Sullivan MD [address] [place] [address] [address] [place] [address] PCP - General Internal Medicine 04/26/13 documented as of this encounter
--- OUTSIDE RECORDS SUMMARY | 2024-12-09 16:32 | XMS_ITS | Continuity of Care Document ---
Author Organization [facility] Address [address] [place] [address] Phone Care Team Providers Care Tip Printer Name Role Phone Veronica Palacios Unavailable Unavailable Procedures Procedure Date Office/outpatient Visit, Est Eye Exam & Treatment Refraction Eye Exam & Treatment Advance Directives Directive Yes / No Effective Date File Name No Information Encounters Encounter Description Practice Location Reason(s) For Visit Diagnoses Date Provider Providers Copied on Encounter Office/outpat ient Visit, Est [facility], [address] [place] [address] [address], [place], [place], [id number], [place] tel:[phone] [facility] No Information 2-201 0 Suzanne Rasheed [address] , [address], [place], [place], [facility], [place]. tel:[phone] [facility], [address] [place] [address] [address], [place], [place], [id number], [place] tel:[phone] [address] [facility] [place] No Information 0-200 9 Suzanne Rasheed [address] , [address], [place], [address], [place]. tel:[phone] [facility], [address] [place] [address] [address], [place], [place], [id number], [place] tel:[phone] [facility] [place] No Information 7-200 8 Suzanne Rasheed [address] , [address], [place], [address], [place]. tel:[phone] Family History Family Member Type Diagnosis Age At Onset No Information Payers Payer name Insurance type Covered democrat ID Authoriza tion(s) Medicare RR MB [id number] Social History Type Description Quantity Date Captured [...]
--- OUTSIDE RECORDS SUMMARY | 2024-12-09 16:32 | XMS_ITS | Clinical Summary ---
Author Organization [facility] Address [address] [place] [address] Care Team Providers Care Operations Liaison Name Role Phone Freddy Sullivan MD Primary Care Provider [phone] Source Comments [facility],non-owned Affiliates and Associated Physician Practices is amultiple site organization consisting of ambulatory clinics and hospital sitesin [place], [place], [place] and [place]. This disclosure is being madepursuant to the Care Everywhere program and may not contain all information available regarding this patient. Last updated 18.[facility] Allergies Active Allergy Reactions Criticality Noted Date Comments Codeine Nausea and/or Vomiting High 04/24/2013 Morphine Psychiatric High 04/24/2013 hallucinations Medications * Be aware that medications may not be up to date on this document. Alwaysverify current medications with the patient. omeprazole (PRILOSEC) 20 MG capsule Take 20 mg by mouth daily before breakfast. Active amitriptyline (ELAVIL) 50 MG tabletIndicatio ns:Migraine Take 50 mg by mouth at bedtime. Indications: Migraine Headache Active lisinopril (PRINIVIL; ZESTRIL) 20 MG tablet Take 20 mg by mouth once daily. Active lovastatin (MEVACOR) 40 MG tablet Take 40 mg by mouth daily with dinner. Active Calcium-Magnesi um-Vitamin D (CALCIUM MAGNESIUM PO) Take 1,500 mg by mouth once daily. Active propranolol (INDERAL) 80 MG tabletIndicatio ns:Hypertension Take 80 mg by mouth at bedtime. Indications: High Blood Pressure Active piroxicam (FELDENE) 10 MG capsule Take 1 Cap by mouth once daily. 20 Cap 1 04/26/2013 Active methocarbamol (ROBAXIN) 500 MG tablet Take 1 Tab by mouth every 8 hours as needed for Muscle Spasms. 30 Tab 1 04/26/2013 Active hydrocodone-kaylen taminophen (NORCO) 5-325 MG tablet Take 1 Tab by mouth every 4 hours as needed for Pain. 30 Tab 1 04/27/2013 Active aspirin EC (ECOTRIN) 81 MG tablet Take 81 mg by mouth once daily. 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 Immunizations Immunization Administration Dates Next Due INFLUENZA VACCINE 04/27/2013 Family History Medical History Relation Name Comments Cancer Brother 1 colon Cancer Brother 2 lung Cancer Brother 3 pancreatic Cancer Brother 4 liver Stroke Father Cancer Sister ovarian Relation Name Status Comments Brother 1 Brother 2 Brother 3 Brother 4 Father (Age 79) Mother (Age 81) Sister Social History Tobacco Use Types Packs/Day Years Used Date Smoking Tobacco: Never Smokeless Tobacco: Never Alcohol Use Standard Drinks/Week Comments No 0 (1 standard drink = 0.6 oz pur e alcohol) Comments No Sex and Gender Information Value Date Recorded Sex Assigned at Not on file Legal Sex Female 6:24 AM MECHANICAL TECHNICAL SERVICE SPECIALIST Gender Identity Not on file Sexual Orientation Not on file Last Filed Vital Signs Vital Sign Reading Time Taken Comments Blood Pressure 100/60 04/27/2013 3:25 PM CDT Pulse 73 04/27/2013 3:25 PM CDT Temperature 36.7 C (98.1 F) 04/27/2013 3:25 PM CDT Respiratory Rate 18 04/27/2013 3:25 PM CDT Oxygen Saturation 94% 04/27/2013 3:25 PM CDT Inhaled Oxygen Concentration - - Weight 81.6 kg (180 lb) 06/14/2014 11:39 AM MECHANICAL TECHNICAL SERVICE SPECIALIST Height 165.1 cm (5' 5 ) 06/14/2014 11:39 AM MECHANICAL TECHNICAL SERVICE SPECIALIST Body Mass Index 29.95 06/14/2014 11:39 AM MECHANICAL TECHNICAL SERVICE SPECIALIST Plan of Treatment Health Maintenance Due Date Last Done Comments BONE DENSITY TESTING 1937 DTAP/TDAP/TD VACCINES (1 - Tdap) 1956 PNEUMOCOCCAL VACCINE 50+ (1 of 1 - PCV) 1987 ZOSTER VACCINE (1 of 2) 1987 Respiratory Syncytial Virus (RSV) Vaccine Pt: or over 60 yrs (1 - 1-dose 75+ series) 2012 COVID-19 VACCINE (1 - 2023-2 5 season) 2024 DEPRESSION SCREENING 08/09/2024 INFLUENZA VACCINE (Season Ended) 2025 04/27/20 13 HEPATITIS B VACCINE Aged Out No longe r eligible based on patient's age to complete this topic HIB VACCINE Aged Out No longer eligi ble based on patient's age to complete this topic HPV VACCINE Aged Out No longer eligi ble based on patient's age to complete this topic MENINGOCOCCAL (Group B) VACC INE SHARED DECISION-MAKING Aged Out No longer eligibl e based on patient's age to complete this topic MENINGOCOCCAL GROUPS A/C/Y/W VACCINE Aged Out No longer eligible b ased on patient's age to complete this topic Insurance MEDICARE COMMERCIAL GENERIC MEDICARE [facility] Advance Directives Documents on File Type Date Recorded 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
== END 2024-12-09 14:30 | disposition home or self-care (01) ==
PROVIDERS: Emergency Provider Emergency Medicine; PCP Internal Medicine
DX: R07.89 Other chest pain (principal); V89.2XXA Person injured in unspecified motor-vehicle accident, traffic, initial encounter; W22.10XA Striking against or struck by unspecified automobile airbag, initial encounter
CPT/HCPCS: 71250; 93005; 99284